=== PATIENT | female | born 1955 | race Caucasian/White ===

== ENCOUNTER → 2016-10-03 | Outpatient (CLI) | payer OTHER ==
[~2016-10-03] MED LIST: /ESOM40CA OR; ALLE25CA OR; ALLERGY SHOTS SUBQ; CETI10TA OR; FURO80TA2 OR; LIPI20TA OR; METF500T4 OR; RAMIP PO; SING10TA31 OR; SM I100T OR; VENTAER IN; VERA120T OR; XOPENEX NEB
[2016-10-03 13:34] LABS: ALBUMIN 4.5 GM/DL (3.2-5.2); ALBUMIN/GLOBULIN RATIO 1.36 (1.00-1.93); BILIRUBIN,DIRECT 0.1 MG/DL (0.0-0.2); BILIRUBIN,TOTAL 0.6 MG/DL (0.2-1.0); CALCIUM LEVEL 10.2 MG/DL (8.8-10.2); CREATININE FOR GFR 1.07 MG/DL (0.55-1.02); GLOMERULAR FILTRATION RATE 55.3 (>45); MEAN CORPUSCULAR HEMOGLOBIN 29.3 pg (27.0-33.0); MEAN CORPUSCULAR HGB CONC 33.1 g/dl (32.0-36.5); MEAN CORPUSCULAR VOLUME 88.6 fl (80.0-96.0); PHOSPHORUS LEVEL 3.3 MG/DL (2.5-4.9); POTASSIUM SERUM 4.2 MEQ/L (3.5-5.1); RED CELL DISTRIBUTION WIDTH 14.8 % (11.5-14.5); TOTAL PROTEIN 7.8 GM/DL (6.4-8.2); WHITE BLOOD COUNT 8.2 K/mm3 (4.0-10.0)
== END ==
LOC: M SMT 09:11
PROVIDERS: ATTEND Podiatrist Foot & Ankle Surgery
DX: B35.1 Tinea unguium (principal); Z79.899 Other long term (current) drug therapy

== ENCOUNTER → 2016-11-12 | Outpatient (CLI) | payer OTHER ==
[2016-11-12 14:01] LABS: MEAN CORPUSCULAR HEMOGLOBIN 29.9 pg (27.0-33.0); MEAN CORPUSCULAR HGB CONC 33.4 g/dl (32.0-36.5); MEAN CORPUSCULAR VOLUME 89.6 fl (80.0-96.0); WHITE BLOOD COUNT 6.7 K/mm3 (4.0-10.0)
[2016-11-12 14:03] LABS: ALBUMIN 4.4 GM/DL (3.2-5.2); ALBUMIN/GLOBULIN RATIO 1.57 (1.00-1.93); BILIRUBIN,DIRECT 0.2 MG/DL (0.0-0.2); BILIRUBIN,TOTAL 0.7 MG/DL (0.2-1.0); CALCIUM LEVEL 9.7 MG/DL (8.8-10.2); CREATININE FOR GFR 1.27 MG/DL (0.55-1.02); GLOMERULAR FILTRATION RATE 45.4 (>45); POTASSIUM SERUM 4.3 MEQ/L (3.5-5.1); TOTAL PROTEIN 7.2 GM/DL (6.4-8.2)
== END ==
LOC: M SMT 09:10
PROVIDERS: ATTEND Podiatrist Foot & Ankle Surgery
DX: Z79.899 Other long term (current) drug therapy (principal)

== ENCOUNTER → 2016-11-19 | Outpatient (CLI) | payer OTHER ==
[2016-11-19 20:19] LABS: ANION GAP 8 MEQ/L (8-16); BLOOD UREA NITROGEN 20 MG/DL (7-18); CARBON DIOXIDE LEVEL 26 MEQ/L (21-32); CHLORIDE LEVEL 105 MEQ/L (98-107); CREATININE FOR GFR 0.89 MG/DL (0.55-1.02); GLOMERULAR FILTRATION RATE > 60.0 (>45); GLUCOSE, FASTING 105 MG/DL (80-110); POTASSIUM SERUM 4.2 MEQ/L (3.5-5.1); SODIUM LEVEL 139 MEQ/L (136-145)
== END ==
LOC: M SMT 14:48
PROVIDERS: ATTEND Nurse Practitioner Family
DX: I10 Essential (primary) hypertension (principal)

== ENCOUNTER → 2016-12-27 | Outpatient (CLI) | payer OTHER ==
[2016-12-27 18:29] LABS: MEAN CORPUSCULAR HEMOGLOBIN 30.3 pg (27.0-33.0); MEAN CORPUSCULAR HGB CONC 32.7 g/dl (32.0-36.5); MEAN CORPUSCULAR VOLUME 92.6 fl (80.0-96.0); RED CELL DISTRIBUTION WIDTH 13.9 % (11.5-14.5); WHITE BLOOD COUNT 7.9 K/mm3 (4.0-10.0)
[2016-12-27 19:31] LABS: ALBUMIN 4.6 GM/DL (3.2-5.2); ALBUMIN/GLOBULIN RATIO 1.64 (1.00-1.93); BILIRUBIN,DIRECT 0.1 MG/DL (0.0-0.2); BILIRUBIN,TOTAL 0.7 MG/DL (0.2-1.0); CREATININE FOR GFR 1.16 MG/DL (0.55-1.02); GLOMERULAR FILTRATION RATE 50.4 (>45); PHOSPHORUS LEVEL 3.9 MG/DL (2.5-4.9); POTASSIUM SERUM 4.2 MEQ/L (3.5-5.1); TOTAL PROTEIN 7.4 GM/DL (6.4-8.2)
== END ==
LOC: M SMT 13:03
PROVIDERS: ATTEND Podiatrist Foot & Ankle Surgery
DX: B35.1 Tinea unguium (principal); Z79.899 Other long term (current) drug therapy

== ENCOUNTER → 2017-02-04 | Outpatient (CLI) | payer OTHER ==
[2017-02-04 18:00] LABS: ALBUMIN 4.4 GM/DL (3.2-5.2); ALBUMIN/GLOBULIN RATIO 1.47 (1.00-1.93); BILIRUBIN,TOTAL 0.7 MG/DL (0.2-1.0); CALCIUM LEVEL 9.4 MG/DL (8.8-10.2); CREATININE FOR GFR 1.01 MG/DL (0.55-1.02); GLOMERULAR FILTRATION RATE 59.1 (>45); POTASSIUM SERUM 3.5 MEQ/L (3.5-5.1); TOTAL PROTEIN 7.4 GM/DL (6.4-8.2)
[2017-02-04 18:35] LABS: BASO % 0.5 % (0.0-1.0); EOS # 0.2 K/mm3 (0.0-0.50); EOS % 3.4 % (0.0-3.0); LARGE UNSTAINED CELL # 0.1 K/mm3 (0.0-0.4); LARGE UNSTAINED CELL % 0.7 % (0.0-4.0); LYMPH # 1.3 K/mm3 (1.5-4.5); LYMPH % 16.9 % (24.0-44.0); MEAN CORPUSCULAR HEMOGLOBIN 29.6 pg (27.0-33.0); MEAN CORPUSCULAR HGB CONC 33.6 g/dl (32.0-36.5); MONO # 0.3 K/mm3 (0.0-0.8); MONO % 4.8 % (0.0-5.0); NEUTROPHILS # 5.3 K/mm3 (1.8-7.7); NEUTROPHILS % 73.7 % (36.0-66.0); PLATELET COUNT, AUTOMATED 372 k/mm3 (150-450); WHITE BLOOD COUNT 7.1 K/mm3 (4.0-10.0)
== END ==
LOC: M SMT 13:47
PROVIDERS: ATTEND Nurse Practitioner Family
DX: M16.0 Bilateral primary osteoarthritis of hip (principal); E78.4 Other hyperlipidemia; E11.9 Type 2 diabetes mellitus without complications; I10 Essential (primary) hypertension

== ENCOUNTER → 2017-02-06 | Outpatient (CLI) | payer OTHER ==
--- NOTE | 2017-02-06 09:55 | REP ---
REASON: Increasing back pain. COMPARISON: 11/07/2010. There is loss of disc space height and disc hydrational signal at L3-4 through L5-S1, particularly posteriorly at L3-4 and L4-5 but universally at L5-S1 essentially unchanged from the prior exam. No abnormal signal has developed in the imaged portion of the spinal cord. The marrow signal is within normal limits. 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 Vertebral body height and alignment is again seen to be within normal limits. At the L1-2 level, there is no change. There is no disc herniation, foraminal narrowing, or central canal stenosis. At the L2-3 level, there is a broad based annular bulge causing minimal thecal sac compression status quo. There is no disc herniation, foraminal narrowing or central canal stenosis. There is no significant change from the prior exam. At the L3-4 level, there is a broad based annular bulge which mildly compresses the anterior thecal sac but the degree of compression appears to be have increased slightly from the prior exam. Degenerative facet joint changes are present bilaterally with thickening of the ligamentum flava. There is no disc extrusion or foraminal stenosis. At the L4-5 level, there is a broad based annular bulge. The small central focal subligamentous disc protrusion seen previously has desiccated. The broad based bulge is again seen to flatten and straighten the anterior surface of the thecal sac causing slight central canal stenosis. There is no acute disc extrusion or foraminal narrowing. At the L5-S1 level, there is an asymmetric broad based annular bulge status quo. There is no disc extrusion, foraminal narrowing, or central canal stenosis. IMPRESSION: Multilevel discogenic changes as described above. Signed by Uriel Parsons DO 02/06/2017 11:04 A
--- NOTE | 2017-02-06 16:15 | REPMRS ---
Patient History The patient states she has not had a clinical breast exam in over a year. No known family history of cancer. Digital Mammo Screening Bilat: February 06, 2017 - Exam #: [id number] Bilateral CC and MLO view(s) were taken. Technologist: Syeda Herzog, Technologist Prior study comparison: January 30, 2013, digital mammo diagnostic bilateral performed at [facility]. July 21, 2012, right breast digital mammo diagnostic unilateral performed at [facility]. FINDINGS: There are scattered fibroglandular densities. There has been no change in the appearance of the mammogram from the prior studies. There is a mild amount of residual fibroglandular tissue which is fairly symmetric. There is no interval development of dominant mass, architectural distortion, or clustered microcalcification suggestive of malignancy. ASSESSMENT: BI-RADS/ACR category 1 mammogram. Negative. Recommendation Routine screening mammogram in 1 year (for women over age 40). This mammogram was interpreted with the aid of an FDA-approved computer-aided dectection system. Electronically Signed By: Eleazar Lynne MD 02/06/17 [id number]
== END ==
LOC: M RAD 07:14
PROVIDERS: ATTEND Nurse Practitioner Family
DX: Z12.31 Encounter for screening mammogram for malignant neoplasm of breast (principal); M51.26 Other intervertebral disc displacement, lumbar region; M51.27 Other intervertebral disc displacement, lumbosacral region

== ENCOUNTER 2018-03-12 08:57 | Inpatient (IN) | payer OTHER ==
[2018-03-12] MEDS: ACETAMINOPHEN TAB 650MG DOSE (2X325MG) PO ×2 (09:45→17:06)
[2018-03-12 09:52] LABS: VENOUS BASE EXCESS -3.9 (-2.0-2.0); VENOUS HCO3 19.4 MEQ/L (23.0-27.0); VENOUS O2 SATURATION 88.8 % (60.0-80.0); VENOUS PARTIAL PRESSURE CO2 29.9 mmHg (38.0-50.0); VENOUS PARTIAL PRESSURE O2 54.6 mmHg (30.0-50.0); VENOUS PH 7.431 UNITS (7.330-7.430); VENOUS STANDARD HCO3 21.1 MEQ/L; VENOUS TOTAL CO2 20.4 MEQ/L (24.0-28.0)
[2018-03-12 09:55] LABS: BASO % 0.3 % (0.0-1.0); EOS % 0.1 % (0.0-3.0); HEMATOCRIT 32.1 % (36.0-47.0); HEMOGLOBIN 10.7 g/dl (12.0-15.5); IMMATURE GRANULOCYTE % 0.6 % (0-3.0); LYMPH # 0.3 10^3/uL (1.5-4.5); LYMPH % 2.9 % (24.0-44.0); MEAN CORPUSCULAR HEMOGLOBIN 29.2 pg (27.0-33.0); MEAN CORPUSCULAR HGB CONC 33.3 g/dl (32.0-36.5); MEAN CORPUSCULAR VOLUME 87.7 fl (80.0-96.0); MONO # 0.8 10^3/uL (0.0-0.8); NEUTROPHILS # 9.9 10^3/uL (1.8-7.7); NEUTROPHILS % 89.1 % (36.0-66.0); PLATELET COUNT, AUTOMATED 301 10^3/uL (150-450); RED BLOOD COUNT 3.66 10^6/uL (4.00-5.40); RED CELL DISTRIBUTION WIDTH 14.8 % (11.5-14.5); WHITE BLOOD COUNT 11.1 10^3/uL (4.0-10.0)
[2018-03-12 09:58] LABS: POSITIVE MORPH POS FLAG
[2018-03-12 09:59] LABS: INR 1.09; PROTHROMBIN TIME 14.2 SECONDS (12.1-14.4)
[2018-03-12 10:00] LABS: PARTIAL THROMBOPLASTIN TIME 29.6 SECONDS (25.4-37.6)
[2018-03-12 10:05] LABS: LACTIC ACID SEPSIS PROTOCOL 1.7 MMOL/L (0.4-2.0)
[2018-03-12 10:05] LABS: ALKALINE PHOSPHATASE 80 U/L (45-117); ALT/SGPT 38 U/L (12-78); AMYLASE 34 U/L (25-115); AST/SGOT 27 U/L (7-37); BILIRUBIN,DIRECT 0.4 MG/DL (0.0-0.2); BILIRUBIN,TOTAL 0.8 MG/DL (0.2-1.0); BLOOD UREA NITROGEN 21 MG/DL (7-18); CALCIUM LEVEL 8.9 MG/DL (8.8-10.2); CPK CREATINE PHOSPHOKINASE 110 U/L (26-192); CREATININE FOR GFR 1.74 MG/DL (0.55-1.30); GLUCOSE, FASTING 131 MG/DL (70-100); POTASSIUM SERUM 3.4 MEQ/L (3.5-5.1); SODIUM LEVEL 136 MEQ/L (136-145); TROPONIN I < 0.02 NG/ML (< 0.10)
[2018-03-12 10:08] LABS: CK-MB VALUE MASS < 1.0 NG/ML (<3.6)
[2018-03-12 10:15] LABS: APPEARANCE, URINE CLEAR (CLEAR); BACTERIA, URINE AUTO NEGATIVE (NEGATIVE); BILIRUBIN, URINE AUTO NEGATIVE (NEGATIVE); BLOOD, URINE BLOOD 1+ (NEGATIVE); COLOR, URINE YELLOW (YELLOW); GLUCOSE, URINE (UA) AUTO NEGATIVE (NEGATIVE); KETONE, URINE AUTO NEGATIVE (NEGATIVE); LEUKOCYTE ESTERASE, URINE AUTO NEGATIVE (NEGATIVE); MUCUS, URINE SMALL (NEGATIVE); NITRITE, URINE AUTO NEGATIVE (NEGATIVE); PROTEIN, URINE AUTO 2+ mg/dL (NEGATIVE); RBC, URINE AUTO 0 /HPF (0-3); SPECIFIC GRAVITY URINE AUTO 1.018 (1.002-1.035); SQUAMOUS EPITHELIAL CELL UR AU 0 /HPF (0-6); WBC, URINE AUTO 1 /HPF (0-3)
[2018-03-12 11:03] LABS: ALBUMIN 3.1 GM/DL (3.2-5.2); ALBUMIN/GLOBULIN RATIO 0.84 (1.00-1.93); ANION GAP 11 MEQ/L (8-16); CARBON DIOXIDE LEVEL 19 MEQ/L (21-32); CHLORIDE LEVEL 106 MEQ/L (98-107); TOTAL PROTEIN 6.8 GM/DL (6.4-8.2)
[2018-03-12] MEDS: DILUENT IV (11:09)
[2018-03-12] MEDS: NS IV (11:09)
[2018-03-12] MEDS: LevoFLOXacin IV 750 MG in APPROPRIATE DILUENT 1 EA IV (11:09)
[2018-03-12] MEDS: ALBUTEROL SULFATE 2.5 MG/0.5 ML INH NEB SOLN NEB (11:47)
[2018-03-12 12:06] LABS: INFLUENZA A AMPLIFICATION NEGATIVE (NEGATIVE); INFLUENZA B AMPLIFICATION NEGATIVE (NEGATIVE)
[2018-03-12] MEDS ORDERED: LEVALBUTEROL HFA 45MCG/ACT 15 GM INHALER INH (14:45)
[2018-03-12 16:21] LABS: CARBOXYHEMOGLOBIN 2.3 % (0.0-1.5)
[2018-03-12 16:50] LABS: CPK CREATINE PHOSPHOKINASE 145 U/L (26-192); FREE THYROXINE INDEX 3.8 % (1.3-4.8); MAGNESIUM LEVEL 1.9 MG/DL (1.8-2.4); T UPTAKE 38 % (30-39); THYROXINE (T4) 10.1 UG/DL (4.5-12.0); TROPONIN I < 0.02 NG/ML (< 0.10)
[2018-03-12 16:56] LABS: MB/CK RELATIVE INDEX 0.68 (< OR =4); THYROID STIMULATING HORMONE 0.655 uIU/ML (0.358-3.740)
[2018-03-12] MEDS: KCL 20MEQ IN 0.45NS 1000ML 1,000 ML IV ×2 (17:05→18:30)
[2018-03-12] MEDS: POTASSIUM CHLORIDE 10 MEQ SR TABLET PO (17:06)
[2018-03-12] MEDS: MONTELUKAST 10 MG TAB PO (22:19)
[2018-03-12] MEDS: HEPARIN SOD (PORCINE) 5000 UNITS/ML VIAL SC (22:19)
[2018-03-12] MEDS: ATORVASTATIN 20 MG TAB PO (22:19)
[2018-03-12] MEDS: PANTOPRAZOLE 40MG TAB (PROTONIX) PO (22:19)
[2018-03-12] MEDS: VERAPAMIL 40 MG TAB PO (22:21)
[2018-03-12] MEDS: MEROPENEM INJ 1 GM in APPROPRIATE DILUENT 1 EA IV (22:21)
[2018-03-12] MEDS ORDERED: PILL CRUSHER/CUTTER 1 EACH XX (22:30)
[2018-03-12] MEDS: VANCOMYCIN HCL 1,000 MG, VIAL MATE ADAPTER 1 EACH in D5W 250 ML IV (23:27)
[2018-03-12 23:46] LABS: OSMOLALITY URINE 364 MOSM/KG (500-800)
[2018-03-13 00:06] LABS: CHLORIDE,RANDOM URINE 99 MEQ/L; CREATININE,RANDOM URINE 60.8 MG/DL; SODIUM,RANDOM URINE 99 MEQ/L; TOTAL PROTEIN,RANDOM URINE 62.4 MG/DL (0.0-12.0)
[2018-03-13] MEDS: ACETAMINOPHEN TAB 650MG DOSE (2X325MG) PO ×2 (00:06→09:34)
[2018-03-13] MEDS: VERAPAMIL 40 MG TAB PO ×3 (05:43→21:51)
[2018-03-13] MEDS: KCL 20MEQ IN 0.45NS 1000ML 1,000 ML IV (05:43)
[2018-03-13 06:00] LABS: HEMATOCRIT 28.3 % (36.0-47.0); HEMOGLOBIN 8.9 g/dl (12.0-15.5); MEAN CORPUSCULAR HEMOGLOBIN 28.5 pg (27.0-33.0); MEAN CORPUSCULAR HGB CONC 31.4 g/dl (32.0-36.5); MEAN CORPUSCULAR VOLUME 90.7 fl (80.0-96.0); PLATELET COUNT, AUTOMATED 254 10^3/uL (150-450); RED BLOOD COUNT 3.12 10^6/uL (4.00-5.40); RED CELL DISTRIBUTION WIDTH 15.3 % (11.5-14.5)
[2018-03-13 06:27] LABS: ALBUMIN 2.3 GM/DL (3.2-5.2); ANION GAP 9 MEQ/L (8-16); BLOOD UREA NITROGEN 9 MG/DL (7-18); CALCIUM LEVEL 8.5 MG/DL (8.8-10.2); CARBON DIOXIDE LEVEL 20 MEQ/L (21-32); CHLORIDE LEVEL 113 MEQ/L (98-107); CREATININE FOR GFR 1.16 MG/DL (0.55-1.30); GLOMERULAR FILTRATION RATE 50.2 (>45); GLUCOSE, FASTING 92 MG/DL (70-100); MAGNESIUM LEVEL 1.9 MG/DL (1.8-2.4); PHOSPHORUS LEVEL 2.2 MG/DL (2.5-4.9); POTASSIUM SERUM 3.7 MEQ/L (3.5-5.1); SODIUM LEVEL 142 MEQ/L (136-145)
[2018-03-13] MEDS: HEPARIN SOD (PORCINE) 5000 UNITS/ML VIAL SC ×2 (08:18→20:34)
[2018-03-13] MEDS: MEROPENEM INJ 1 GM in APPROPRIATE DILUENT 1 EA IV ×2 (10:24→21:16)
[2018-03-13] MEDS: METOCLOPRAMIDE INJ 10MG/2ML VIAL (J2765) IV (10:25)
[2018-03-13] MEDS: KETOROLAC 30 MG/ML VIAL (J1885) IV (10:25)
[2018-03-13] MEDS ORDERED: MOXIFLOXACIN HCL 400 MG in APPROPRIATE DILUENT 1 EA IV (11:00)
[2018-03-13] MEDS ORDERED: VANCOMYCIN HCL 1,000 MG, VIAL MATE ADAPTER 1 EACH in D5W 250 ML IV (12:00)
[2018-03-13] MEDS: AZITHROMYCIN INJ 500 MG, VIAL MATE ADAPTER 1 EACH in D5W 250 ML IV (12:09)
[2018-03-13] MEDS: FIORICET TAB PO ×2 (12:31→18:00)
[2018-03-13] MEDS: VANCOMYCIN HCL 1,000 MG, VIAL MATE ADAPTER 1 EACH in D5W 250 ML IV (13:28)
[2018-03-13] MEDS: VANCOMYCIN HCL 500 MG in D5W MINI-BAG PLUS 100 ML IV (14:36)
[2018-03-13] MEDS: guaiFENesin DM LIQ 10ML UD PO ×2 (15:20→22:36)
[2018-03-13] MEDS: KCL 40MEQ in NS 1000ML 1,000 ML IV (15:58)
[2018-03-13] MEDS: NS 1,000 ML IV (18:24)
[2018-03-13 19:02] LABS: ANION GAP 10 MEQ/L (8-16); BLOOD UREA NITROGEN 8 MG/DL (7-18); CALCIUM LEVEL 9.2 MG/DL (8.8-10.2); CARBON DIOXIDE LEVEL 19 MEQ/L (21-32); CHLORIDE LEVEL 112 MEQ/L (98-107); CREATININE FOR GFR 1.09 MG/DL (0.55-1.30); GLUCOSE, FASTING 80 MG/DL (70-100); SODIUM LEVEL 141 MEQ/L (136-145)
[2018-03-13] MEDS: ATORVASTATIN 20 MG TAB PO (20:32)
[2018-03-13] MEDS: PANTOPRAZOLE 40MG TAB (PROTONIX) PO (20:33)
[2018-03-13] MEDS: MONTELUKAST 10 MG TAB PO (20:34)
[2018-03-14 00:07] LABS: ANION GAP 9 MEQ/L (8-16); BLOOD UREA NITROGEN 8 MG/DL (7-18); CALCIUM LEVEL 8.9 MG/DL (8.8-10.2); CARBON DIOXIDE LEVEL 19 MEQ/L (21-32); CHLORIDE LEVEL 114 MEQ/L (98-107); GLOMERULAR FILTRATION RATE 53.4 (>45); GLUCOSE, FASTING 91 MG/DL (70-100); POTASSIUM SERUM 3.9 MEQ/L (3.5-5.1); SODIUM LEVEL 142 MEQ/L (136-145)
[2018-03-14] MEDS: VANCOMYCIN HCL 1,000 MG, VIAL MATE ADAPTER 1 EACH in D5W 250 ML IV (00:16)
[2018-03-14] MEDS: FIORICET TAB PO ×4 (00:19→20:35)
[2018-03-14] MEDS: LEVALBUTEROL 1.25 MG/0.5 ML CONCENTRATE NEB INH ×4 (01:28→20:57)
[2018-03-14] MEDS: guaiFENesin DM LIQ 10ML UD PO ×2 (05:44→18:57)
[2018-03-14] MEDS: NS 1,000 ML IV ×2 (05:52→13:16)
[2018-03-14 06:03] LABS: HEMATOCRIT 28.7 % (36.0-47.0); HEMOGLOBIN 9.3 g/dl (12.0-15.5); MEAN CORPUSCULAR HEMOGLOBIN 29.2 pg (27.0-33.0); MEAN CORPUSCULAR HGB CONC 32.4 g/dl (32.0-36.5); MEAN CORPUSCULAR VOLUME 90.3 fl (80.0-96.0); PLATELET COUNT, AUTOMATED 275 10^3/uL (150-450); RED BLOOD COUNT 3.18 10^6/uL (4.00-5.40); RED CELL DISTRIBUTION WIDTH 15.6 % (11.5-14.5); WHITE BLOOD COUNT 6.7 10^3/uL (4.0-10.0)
[2018-03-14 06:25] LABS: ALBUMIN 2.1 GM/DL (3.2-5.2); ANION GAP 8 MEQ/L (8-16); BLOOD UREA NITROGEN 6 MG/DL (7-18); CALCIUM LEVEL 8.6 MG/DL (8.8-10.2); CARBON DIOXIDE LEVEL 20 MEQ/L (21-32); CHLORIDE LEVEL 114 MEQ/L (98-107); CREATININE FOR GFR 0.94 MG/DL (0.55-1.30); GLOMERULAR FILTRATION RATE > 60.0 (>45); GLUCOSE, FASTING 103 MG/DL (70-100); POTASSIUM SERUM 3.7 MEQ/L (3.5-5.1); SODIUM LEVEL 142 MEQ/L (136-145)
[2018-03-14] MEDS: VERAPAMIL 40 MG TAB PO ×4 (06:54→22:00)
[2018-03-14] MEDS: FLUTICASONE INH (07:38)
[2018-03-14] MEDS: VILANTEROL INH (07:38)
[2018-03-14] MEDS: HEPARIN SOD (PORCINE) 5000 UNITS/ML VIAL SC ×2 (09:00→20:45)
[2018-03-14] MEDS: MEROPENEM INJ 1 GM in APPROPRIATE DILUENT 1 EA IV ×2 (09:51→22:42)
[2018-03-14] MEDS: AZITHROMYCIN 250 MG TAB PO (11:01)
[2018-03-14] MEDS: METOCLOPRAMIDE INJ 10MG/2ML VIAL (J2765) IV (12:19)
[2018-03-14] MEDS: KETOROLAC 30 MG/ML VIAL (J1885) IV (12:19)
[2018-03-14 12:56] LABS: ERYTHROCYTE SEDIMENTATION RATE 127 mm/hr (0-30)
[2018-03-14] MEDS: SODIUM BICARBONATE 325 MG TAB PO ×3 (13:15→20:44)
[2018-03-14 19:07] LABS: ANION GAP 7 MEQ/L (8-16); BLOOD UREA NITROGEN 8 MG/DL (7-18); CALCIUM LEVEL 8.5 MG/DL (8.8-10.2); CARBON DIOXIDE LEVEL 21 MEQ/L (21-32); CHLORIDE LEVEL 117 MEQ/L (98-107); GLOMERULAR FILTRATION RATE 48.3 (>45); GLUCOSE, FASTING 107 MG/DL (70-100); POTASSIUM SERUM 3.3 MEQ/L (3.5-5.1); SODIUM LEVEL 145 MEQ/L (136-145)
[2018-03-14 19:10] LABS: LACTIC ACID SEPSIS PROTOCOL 1.9 MMOL/L (0.4-2.0)
[2018-03-14] MEDS: ATORVASTATIN 20 MG TAB PO (20:43)
[2018-03-14] MEDS: PANTOPRAZOLE 40MG TAB (PROTONIX) PO (20:43)
[2018-03-14] MEDS: MONTELUKAST 10 MG TAB PO (20:43)
[2018-03-14] MEDS: ZONISAMIDE 50 MG CAP (ZONEGRAN) PO (20:45)
[2018-03-14] MEDS ORDERED: XYZAL 5 MG PO (21:00)
[2018-03-15] MEDS: guaiFENesin DM LIQ 10ML UD PO ×2 (00:09→05:04)
[2018-03-15] MEDS: LEVALBUTEROL 1.25 MG/0.5 ML CONCENTRATE NEB INH ×4 (01:00→19:37)
[2018-03-15] MEDS: NS 1,000 ML IV ×2 (01:10→10:30)
[2018-03-15] MEDS: FIORICET TAB PO (04:04)
[2018-03-15 05:47] LABS: HEMATOCRIT 23.6 % (36.0-47.0); HEMOGLOBIN 7.7 g/dl (12.0-15.5); MEAN CORPUSCULAR HEMOGLOBIN 28.6 pg (27.0-33.0); MEAN CORPUSCULAR HGB CONC 32.6 g/dl (32.0-36.5); MEAN CORPUSCULAR VOLUME 87.7 fl (80.0-96.0); PLATELET COUNT, AUTOMATED 304 10^3/uL (150-450); RED BLOOD COUNT 2.69 10^6/uL (4.00-5.40); RED CELL DISTRIBUTION WIDTH 15.9 % (11.5-14.5); WHITE BLOOD COUNT 6.5 10^3/uL (4.0-10.0)
[2018-03-15] MEDS: VERAPAMIL 40 MG TAB PO ×3 (06:00→21:58)
[2018-03-15 06:03] LABS: ANION GAP 9 MEQ/L (8-16); BLOOD UREA NITROGEN 6 MG/DL (7-18); CALCIUM LEVEL 8.4 MG/DL (8.8-10.2); CARBON DIOXIDE LEVEL 19 MEQ/L (21-32); CHLORIDE LEVEL 116 MEQ/L (98-107); CREATININE FOR GFR 0.95 MG/DL (0.55-1.30); GLOMERULAR FILTRATION RATE > 60.0 (>45); GLUCOSE, FASTING 115 MG/DL (70-100); MAGNESIUM LEVEL 1.9 MG/DL (1.8-2.4); PHOSPHORUS LEVEL 1.9 MG/DL (2.5-4.9); POTASSIUM SERUM 3.3 MEQ/L (3.5-5.1); SODIUM LEVEL 144 MEQ/L (136-145)
[2018-03-15 07:27] LABS: FERRITIN 902 NG/ML (8-252); IRON (FE) 18 UG/DL (50-170); PERCENT SATURATION 11.2 % (13.2-45.0); TOTAL IRON BINDING CAPACITY 161 UG/DL (250-450)
[2018-03-15 07:39] LABS: HEMATOCRIT 24.8 % (36.0-47.0); HEMOGLOBIN 8.1 g/dl (12.0-15.5); RETIC HEMOGLOBIN EQUIVALENT 28.5 pg (24-36); RETICULOCYTE # 13.9 10^9/L (17-77); RETICULOCYTE % 0.5 % (0.5-1.5)
[2018-03-15 07:45] LABS: REASON FOR REVIEW RBC MORPHOLOGY; SLIDE REVIEW Report; SOURCE PERIPHERAL SMEAR
[2018-03-15] MEDS: VILANTEROL INH (07:47)
[2018-03-15] MEDS: FLUTICASONE INH (07:47)
[2018-03-15] MEDS: POTASSIUM CHLORIDE 10 MEQ SR TABLET PO (09:07)
[2018-03-15] MEDS: AZITHROMYCIN 250 MG TAB PO (09:07)
[2018-03-15] MEDS: KETOROLAC 30 MG/ML VIAL (J1885) IV (09:07)
[2018-03-15] MEDS: SODIUM BICARBONATE 325 MG TAB PO ×4 (09:07→19:58)
[2018-03-15] MEDS: METOCLOPRAMIDE INJ 10MG/2ML VIAL (J2765) IV (09:08)
[2018-03-15] MEDS: HEPARIN SOD (PORCINE) 5000 UNITS/ML VIAL SC ×2 (09:08→19:52)
[2018-03-15] MEDS: MAG SULF 1GM/100ML (MAG RUN) 1 GM in APPROPRIATE DILUENT 1 EA IV ×2 (09:08→17:21)
[2018-03-15] MEDS: DEXTROMETHORPHAN 60MG/10ML SUSP 90ML BTL(DELSYM) PO (10:24)
[2018-03-15] MEDS: MEROPENEM INJ 1 GM in APPROPRIATE DILUENT 1 EA IV (10:24)
[2018-03-15] MEDS: TOPIRAMATE (TopAMAX) 25 MG TAB PO (11:04)
[2018-03-15 14:10] LABS: BODY FLUID CULTURE Not Indicated (.); LEGIONELLA ANTIGEN URINE Negative (Negative); ORGANISM ID Not indicated. (.); SPECIMEN SOURCE Urine (.); URINE STREP PNEUMONIAE ANTIGEN Negative (Negative)
[2018-03-15] MEDS ORDERED: NORCO, ANEXSIA 5/325MG TABLET (HYDROcodone/ACETAMINOPHEN) PO (15:45)
[2018-03-15] MEDS: TUSSICAPS ER 10/8MG CAPSULE PO ×2 (16:46→19:58)
[2018-03-15] MEDS: FUROSEMIDE 20 MG/2 ML VIAL (J1940) IV (16:46)
[2018-03-15 16:59] LABS: NT-PRO BNP 956 PG/ML (<125)
[2018-03-15] MEDS ORDERED: MAG SULF 1GM/100ML (MAG RUN) 1 GM in APPROPRIATE DILUENT 1 EA IV (17:00)
[2018-03-15] MEDS ORDERED: RACEPINEPHrine 2.25 % UD INHA INH (17:15)
[2018-03-15] MEDS: BUDESONIDE 0.5 MG/2 ML INHALATION SUSPENSION INH (17:21)
[2018-03-15] MEDS: RACEPINEPHrine 2.25 % UD INHA INH (17:30)
[2018-03-15] MEDS ORDERED: methylPREDNISolone INJ 125 MG/2 ML VIAL (J2930) IV (18:00)
[2018-03-15] MEDS: methylPREDNISolone INJ 125 MG/2 ML VIAL (J2930) IV (18:55)
[2018-03-15 19:08] LABS: ABG BASE EXCESS -5.1 (-2.0-2.0); ABG HCO3 17.3 MEQ/L (22.0-26.0); ABG O2 SATURATION 93.7 % (95.0-99.0); ABG PARTIAL PRESSURE O2 65.5 mmHg (75.0-100.0); ABG STANDARD HCO3 20.2 MEQ/L (22.0-26.0); ABG pH (ARTERIAL) 7.475 UNITS (7.350-7.450)
[2018-03-15] MEDS: ATORVASTATIN 20 MG TAB PO (19:52)
[2018-03-15] MEDS: PANTOPRAZOLE 40MG TAB (PROTONIX) PO (19:52)
[2018-03-15] MEDS: MONTELUKAST 10 MG TAB PO (19:52)
[2018-03-15] MEDS: ACETAMINOPHEN TAB 650MG DOSE (2X325MG) PO (19:53)
[2018-03-15] MEDS: FUROSEMIDE 100 MG/10 ML VIAL (J1940) IV (19:55)
[2018-03-15 20:14] LABS: ANION GAP 10 MEQ/L (8-16); BLOOD UREA NITROGEN 6 MG/DL (7-18); CALCIUM LEVEL 8.6 MG/DL (8.8-10.2); CARBON DIOXIDE LEVEL 20 MEQ/L (21-32); CHLORIDE LEVEL 114 MEQ/L (98-107); CPK CREATINE PHOSPHOKINASE 896 U/L (26-192); CREATININE FOR GFR 1.03 MG/DL (0.55-1.30); GLOMERULAR FILTRATION RATE 57.6 (>45); GLUCOSE, FASTING 118 MG/DL (70-100); POTASSIUM SERUM 4.1 MEQ/L (3.5-5.1); SODIUM LEVEL 144 MEQ/L (136-145); TROPONIN I 0.14 NG/ML (< 0.10)
[2018-03-15 20:15] LABS: CK-MB VALUE MASS 2.1 NG/ML (<3.6); MB/CK RELATIVE INDEX 0.23 (< OR =4)
[2018-03-15] MEDS ORDERED: IBUPROFEN 400 MG TAB PO (20:30)
[2018-03-15] MEDS: traZODone 100 MG TAB PO (21:00)
[2018-03-15] MEDS: LevoFLOXacin IV 500 MG in APPROPRIATE DILUENT 1 EA IV (22:00)
[2018-03-15] MEDS: ACETAMINOPH W/CODEINE #3 TAB UD PO (22:00)
[2018-03-15] MEDS: CEFTAROLINE FOSAMIL 600 MG in D5W MINI-BAG PLUS 50 ML IV (23:38)
[2018-03-16] MEDS ORDERED: methylPREDNISolone INJ 125 MG/2 ML VIAL (J2930) IV (01:00)
[2018-03-16 04:06] LABS: HEMATOCRIT 27.2 % (36.0-47.0); MEAN CORPUSCULAR HEMOGLOBIN 28.9 pg (27.0-33.0); MEAN CORPUSCULAR HGB CONC 33.1 g/dl (32.0-36.5); MEAN CORPUSCULAR VOLUME 87.5 fl (80.0-96.0); PLATELET COUNT, AUTOMATED 395 10^3/uL (150-450); RED BLOOD COUNT 3.11 10^6/uL (4.00-5.40); RED CELL DISTRIBUTION WIDTH 15.9 % (11.5-14.5); WHITE BLOOD COUNT 6.4 10^3/uL (4.0-10.0)
[2018-03-16 04:24] LABS: ALBUMIN 2.3 GM/DL (3.2-5.2); ANION GAP 12 MEQ/L (8-16); BLOOD UREA NITROGEN 9 MG/DL (7-18); CALCIUM LEVEL 8.7 MG/DL (8.8-10.2); CARBON DIOXIDE LEVEL 21 MEQ/L (21-32); CHLORIDE LEVEL 110 MEQ/L (98-107); CREATININE FOR GFR 1.06 MG/DL (0.55-1.30); GLOMERULAR FILTRATION RATE 55.7 (>45); GLUCOSE, FASTING 168 MG/DL (70-100); MAGNESIUM LEVEL 2.6 MG/DL (1.8-2.4); PHOSPHORUS LEVEL 3.2 MG/DL (2.5-4.9); POTASSIUM SERUM 3.4 MEQ/L (3.5-5.1); SODIUM LEVEL 143 MEQ/L (136-145)
[2018-03-16] MEDS: POTASSIUM CHLORIDE 10 MEQ SR TABLET PO (06:34)
[2018-03-16 07:15] LABS: CPK CREATINE PHOSPHOKINASE 747 U/L (26-192); TROPONIN I 0.09 NG/ML (< 0.10)
[2018-03-16 07:26] LABS: CK-MB VALUE MASS 2.4 NG/ML (<3.6); MB/CK RELATIVE INDEX 0.32 (< OR =4)
[2018-03-16] MEDS: BUDESONIDE 0.5 MG/2 ML INHALATION SUSPENSION INH ×2 (07:26→21:06)
[2018-03-16] MEDS: LEVALBUTEROL 1.25 MG/0.5 ML CONCENTRATE NEB INH ×2 (07:28→11:12)
[2018-03-16] MEDS: TUSSICAPS ER 10/8MG CAPSULE PO ×2 (08:53→21:52)
[2018-03-16] MEDS: VERAPAMIL 120 MG SR TAB PO (08:53)
[2018-03-16] MEDS: HEPARIN SOD (PORCINE) 5000 UNITS/ML VIAL SC ×2 (08:54→21:51)
[2018-03-16] MEDS: methylPREDNISolone INJ 40 MG/1 ML VIAL (J2920) IV ×2 (08:54→21:51)
[2018-03-16] MEDS: FLUTICASONE INH (09:00)
[2018-03-16] MEDS: VILANTEROL INH (09:00)
[2018-03-16] MEDS: CEFTAROLINE FOSAMIL 600 MG in D5W MINI-BAG PLUS 50 ML IV ×2 (10:56→23:29)
[2018-03-16] MEDS ORDERED: LEVALBUTEROL 1.25 MG/0.5 ML CONCENTRATE NEB INH ×2 (13:45→20:00)
[2018-03-16] MEDS: FUROSEMIDE 20 MG TAB PO (14:36)
[2018-03-16] MEDS: ATORVASTATIN 20 MG TAB PO (21:50)
[2018-03-16] MEDS: FUROSEMIDE 40 MG TAB PO (21:50)
[2018-03-16] MEDS: SPIRONOLACTONE 25 MG TAB PO (21:50)
[2018-03-16] MEDS: MONTELUKAST 10 MG TAB PO (21:50)
[2018-03-16] MEDS: PANTOPRAZOLE 40MG TAB (PROTONIX) PO (21:50)
[2018-03-16] MEDS: LevoFLOXacin IV 500 MG in APPROPRIATE DILUENT 1 EA IV (21:51)
[2018-03-16] MEDS: traZODone 100 MG TAB PO (22:59)
[2018-03-17 06:15] LABS: HEMATOCRIT 26.9 % (36.0-47.0); MEAN CORPUSCULAR HEMOGLOBIN 29.1 pg (27.0-33.0); MEAN CORPUSCULAR HGB CONC 33.5 g/dl (32.0-36.5); MEAN CORPUSCULAR VOLUME 87.1 fl (80.0-96.0); PLATELET COUNT, AUTOMATED 523 10^3/uL (150-450); RED BLOOD COUNT 3.09 10^6/uL (4.00-5.40); RED CELL DISTRIBUTION WIDTH 16.1 % (11.5-14.5); WHITE BLOOD COUNT 12.4 10^3/uL (4.0-10.0)
[2018-03-17 06:29] LABS: ALBUMIN 2.4 GM/DL (3.2-5.2); ANION GAP 11 MEQ/L (8-16); BLOOD UREA NITROGEN 19 MG/DL (7-18); CALCIUM LEVEL 9.5 MG/DL (8.8-10.2); CARBON DIOXIDE LEVEL 24 MEQ/L (21-32); CHLORIDE LEVEL 108 MEQ/L (98-107); CREATININE FOR GFR 1.12 MG/DL (0.55-1.30); GLOMERULAR FILTRATION RATE 52.3 (>45); GLUCOSE, FASTING 148 MG/DL (70-100); MAGNESIUM LEVEL 2.2 MG/DL (1.8-2.4); PHOSPHORUS LEVEL 3.6 MG/DL (2.5-4.9); POTASSIUM SERUM 3.9 MEQ/L (3.5-5.1); SODIUM LEVEL 143 MEQ/L (136-145)
[2018-03-17] MEDS: BUDESONIDE 0.5 MG/2 ML INHALATION SUSPENSION INH (07:56)
[2018-03-17] MEDS: VILANTEROL INH (07:57)
[2018-03-17] MEDS: FLUTICASONE INH (07:57)
[2018-03-17] MEDS: TUSSICAPS ER 10/8MG CAPSULE PO ×2 (10:17→22:40)
[2018-03-17] MEDS: ACETAMINOPH W/CODEINE #3 TAB UD PO (10:18)
[2018-03-17] MEDS: VERAPAMIL 120 MG SR TAB PO (10:30)
[2018-03-17] MEDS: methylPREDNISolone INJ 40 MG/1 ML VIAL (J2920) IV ×2 (10:31→21:04)
[2018-03-17] MEDS: FUROSEMIDE 40 MG TAB PO ×2 (10:31→20:56)
[2018-03-17] MEDS: HEPARIN SOD (PORCINE) 5000 UNITS/ML VIAL SC ×2 (10:33→21:04)
[2018-03-17] MEDS: CEFTAROLINE FOSAMIL 600 MG in D5W MINI-BAG PLUS 50 ML IV ×2 (10:52→22:40)
[2018-03-17] MEDS ORDERED: MIDAZOLAM INJ 2 MG/2 ML VIAL (J2250) As Ordered (18:55)
[2018-03-17] MEDS ORDERED: fentaNYL 100 MCG/2 ML INJECTION (J3010) As Ordered (18:55)
[2018-03-17] MEDS ORDERED: PROPOFOL 200 MG/20 ML VIAL As Ordered (18:56)
[2018-03-17] MEDS ORDERED: LIDOCAINE 2% INJ 100 MG/5 ML SDV (FOR ANES.) As Ordered (18:56)
[2018-03-17] MEDS: LIDOCAINE 1% SDV INJ 30 ML VIAL As Ordered (19:13)
[2018-03-17] MEDS: BUPIVACAINE HCL 0.5% 30 ML VIAL As Ordered (19:13)
[2018-03-17] MEDS: traZODone 100 MG TAB PO (20:55)
[2018-03-17] MEDS: SPIRONOLACTONE 25 MG TAB PO (21:03)
[2018-03-17] MEDS: MONTELUKAST 10 MG TAB PO (21:03)
[2018-03-17] MEDS: ATORVASTATIN 20 MG TAB PO (21:03)
[2018-03-17] MEDS: PANTOPRAZOLE 40MG TAB (PROTONIX) PO (21:03)
[2018-03-17] MEDS: LevoFLOXacin IV 500 MG in APPROPRIATE DILUENT 1 EA IV (21:04)
[2018-03-18 05:51] LABS: HEMATOCRIT 27.6 % (36.0-47.0); HEMOGLOBIN 9.3 g/dl (12.0-15.5); MEAN CORPUSCULAR HGB CONC 33.7 g/dl (32.0-36.5); PLATELET COUNT, AUTOMATED 561 10^3/uL (150-450); RED BLOOD COUNT 3.21 10^6/uL (4.00-5.40); RED CELL DISTRIBUTION WIDTH 16.1 % (11.5-14.5); WHITE BLOOD COUNT 9.8 10^3/uL (4.0-10.0)
[2018-03-18 06:18] LABS: ALBUMIN 2.5 GM/DL (3.2-5.2); ANION GAP 10 MEQ/L (8-16); BLOOD UREA NITROGEN 27 MG/DL (7-18); C REACTIVE PROTEIN QUANTITATIV 5.74 MG/DL (0.00-0.30); CALCIUM LEVEL 9.5 MG/DL (8.8-10.2); CARBON DIOXIDE LEVEL 26 MEQ/L (21-32); CHLORIDE LEVEL 107 MEQ/L (98-107); GLOMERULAR FILTRATION RATE 48.3 (>45); GLUCOSE, FASTING 132 MG/DL (70-100); MAGNESIUM LEVEL 2.3 MG/DL (1.8-2.4); PHOSPHORUS LEVEL 4.6 MG/DL (2.5-4.9); POTASSIUM SERUM 3.9 MEQ/L (3.5-5.1); SODIUM LEVEL 143 MEQ/L (136-145)
[2018-03-18] MEDS: LEVALBUTEROL 1.25 MG/0.5 ML CONCENTRATE NEB INH (07:53)
[2018-03-18] MEDS: VILANTEROL INH (07:54)
[2018-03-18] MEDS: FLUTICASONE INH (07:54)
[2018-03-18] MEDS: FUROSEMIDE 40 MG TAB PO ×3 (09:00→20:49)
[2018-03-18] MEDS: methylPREDNISolone INJ 40 MG/1 ML VIAL (J2920) IV (09:15)
[2018-03-18] MEDS: HEPARIN SOD (PORCINE) 5000 UNITS/ML VIAL SC ×2 (09:15→20:49)
[2018-03-18] MEDS: VERAPAMIL 120 MG SR TAB PO (09:17)
[2018-03-18] MEDS: TUSSICAPS ER 10/8MG CAPSULE PO ×2 (09:17→20:48)
[2018-03-18] MEDS: CEFTAROLINE FOSAMIL 600 MG in D5W MINI-BAG PLUS 50 ML IV (10:08)
[2018-03-18] MEDS: LevoFLOXacin 500 MG TABLET PO (17:24)
[2018-03-18] MEDS: ACETAMINOPHEN TAB 650MG DOSE (2X325MG) PO (17:24)
[2018-03-18] MEDS: SPIRONOLACTONE 25 MG TAB PO (20:48)
[2018-03-18] MEDS: predniSONE 10 MG TAB PO (20:48)
[2018-03-18] MEDS: ATORVASTATIN 20 MG TAB PO (20:48)
[2018-03-18] MEDS: PANTOPRAZOLE 40MG TAB (PROTONIX) PO (20:48)
[2018-03-18] MEDS: MONTELUKAST 10 MG TAB PO (20:48)
[2018-03-18] MEDS: traZODone 100 MG TAB PO (20:49)
[2018-03-18] MEDS: ACETAMINOPH W/CODEINE #3 TAB UD PO (23:17)
[2018-03-19 05:56] LABS: HEMATOCRIT 29.3 % (36.0-47.0); HEMOGLOBIN 9.5 g/dl (12.0-15.5); MEAN CORPUSCULAR HEMOGLOBIN 28.2 pg (27.0-33.0); MEAN CORPUSCULAR HGB CONC 32.4 g/dl (32.0-36.5); MEAN CORPUSCULAR VOLUME 86.9 fl (80.0-96.0); PLATELET COUNT, AUTOMATED 595 10^3/uL (150-450); RED BLOOD COUNT 3.37 10^6/uL (4.00-5.40); RED CELL DISTRIBUTION WIDTH 15.8 % (11.5-14.5)
[2018-03-19 06:07] LABS: ALBUMIN 2.6 GM/DL (3.2-5.2); ANION GAP 8 MEQ/L (8-16); BLOOD UREA NITROGEN 29 MG/DL (7-18); CALCIUM LEVEL 9.5 MG/DL (8.8-10.2); CARBON DIOXIDE LEVEL 27 MEQ/L (21-32); CHLORIDE LEVEL 109 MEQ/L (98-107); CREATININE FOR GFR 1.26 MG/DL (0.55-1.30); GLOMERULAR FILTRATION RATE 45.7 (>45); GLUCOSE, FASTING 121 MG/DL (70-100); MAGNESIUM LEVEL 2.7 MG/DL (1.8-2.4); PHOSPHORUS LEVEL 3.9 MG/DL (2.5-4.9); POTASSIUM SERUM 4.3 MEQ/L (3.5-5.1); SODIUM LEVEL 144 MEQ/L (136-145)
[2018-03-19] MEDS: VILANTEROL INH (07:25)
[2018-03-19] MEDS: FLUTICASONE INH (07:25)
[2018-03-19] MEDS: FUROSEMIDE 40 MG TAB PO (09:00)
[2018-03-19] MEDS: TUSSICAPS ER 10/8MG CAPSULE PO ×2 (09:09→20:24)
[2018-03-19] MEDS: predniSONE 20 MG TAB PO (09:09)
[2018-03-19] MEDS: VERAPAMIL 120 MG SR TAB PO (09:15)
[2018-03-19] MEDS: HEPARIN SOD (PORCINE) 5000 UNITS/ML VIAL SC ×2 (09:15→20:24)
[2018-03-19] MEDS: METOCLOPRAMIDE INJ 10MG/2ML VIAL (J2765) IV (10:28)
[2018-03-19] MEDS: KETOROLAC 30 MG/ML VIAL (J1885) IV (10:29)
[2018-03-19] MEDS: LEVALBUTEROL 1.25 MG/0.5 ML CONCENTRATE NEB INH ×2 (11:27→15:18)
[2018-03-19] MEDS ORDERED: FIORICET TAB PO (12:15)
[2018-03-19] MEDS: diphenhydrAMINE INJ 50MG/ML VIAL (J1200) IV (13:09)
[2018-03-19] MEDS: ZONISAMIDE 50 MG CAP (ZONEGRAN) PO ×2 (13:09→20:24)
[2018-03-19] MEDS: LevoFLOXacin 500 MG TABLET PO (18:28)
[2018-03-19] MEDS: traZODone 100 MG TAB PO (20:23)
[2018-03-19] MEDS: ATORVASTATIN 20 MG TAB PO (20:24)
[2018-03-19] MEDS: PANTOPRAZOLE 40MG TAB (PROTONIX) PO (20:24)
[2018-03-19] MEDS: MONTELUKAST 10 MG TAB PO (20:24)
[2018-03-20] MEDS: FLUTICASONE INH (08:55)
[2018-03-20] MEDS: VILANTEROL INH (08:55)
[2018-03-20] MEDS: ZONISAMIDE 50 MG CAP (ZONEGRAN) PO ×2 (09:59→20:04)
[2018-03-20] MEDS: TUSSICAPS ER 10/8MG CAPSULE PO ×2 (09:59→20:03)
[2018-03-20] MEDS: HEPARIN SOD (PORCINE) 5000 UNITS/ML VIAL SC ×2 (09:59→20:04)
[2018-03-20] MEDS: predniSONE 20 MG TAB PO (09:59)
[2018-03-20] MEDS: VERAPAMIL 120 MG SR TAB PO (10:00)
[2018-03-20] MEDS: FIORICET TAB PO (15:19)
[2018-03-20] MEDS: LEVALBUTEROL 1.25 MG/0.5 ML CONCENTRATE NEB INH (15:31)
[2018-03-20] MEDS: LevoFLOXacin 500 MG TABLET PO (17:48)
[2018-03-20] MEDS: traZODone 100 MG TAB PO (20:03)
[2018-03-20] MEDS: PANTOPRAZOLE 40MG TAB (PROTONIX) PO (20:03)
[2018-03-20] MEDS: MONTELUKAST 10 MG TAB PO (20:04)
[2018-03-20] MEDS: ATORVASTATIN 20 MG TAB PO (20:04)
[2018-03-21] MEDS: ONDANSETRON 4MG/2ML VIAL (J2405) IV (00:31)
[2018-03-21] MEDS: VILANTEROL INH (07:40)
[2018-03-21] MEDS: FLUTICASONE INH (07:40)
[2018-03-21] MEDS: predniSONE 20 MG TAB PO (09:49)
[2018-03-21] MEDS: VERAPAMIL 120 MG SR TAB PO (09:49)
[2018-03-21] MEDS: HEPARIN SOD (PORCINE) 5000 UNITS/ML VIAL SC ×2 (09:49→21:22)
[2018-03-21] MEDS: ZONISAMIDE 50 MG CAP (ZONEGRAN) PO ×2 (09:50→21:21)
[2018-03-21] MEDS: TUSSICAPS ER 10/8MG CAPSULE PO (09:50)
[2018-03-21 10:05] LABS: BASO % 0.1 % (0.0-1.0); EOS % 0.2 % (0.0-3.0); HEMATOCRIT 31.3 % (36.0-47.0); HEMOGLOBIN 10.1 g/dl (12.0-15.5); IMMATURE GRANULOCYTE % 3.7 % (0-3.0); LYMPH # 1.3 10^3/uL (1.5-4.5); MEAN CORPUSCULAR HEMOGLOBIN 28.7 pg (27.0-33.0); MEAN CORPUSCULAR HGB CONC 32.3 g/dl (32.0-36.5); MEAN CORPUSCULAR VOLUME 88.9 fl (80.0-96.0); MONO # 0.6 10^3/uL (0.0-0.8); NEUTROPHILS # 5.9 10^3/uL (1.8-7.7); PLATELET COUNT, AUTOMATED 563 10^3/uL (150-450); RED BLOOD COUNT 3.52 10^6/uL (4.00-5.40); WHITE BLOOD COUNT 8.1 10^3/uL (4.0-10.0)
[2018-03-21 10:28] LABS: ANION GAP 9 MEQ/L (8-16); BLOOD UREA NITROGEN 22 MG/DL (7-18); CALCIUM LEVEL 9.3 MG/DL (8.8-10.2); CARBON DIOXIDE LEVEL 23 MEQ/L (21-32); CHLORIDE LEVEL 109 MEQ/L (98-107); CREATININE FOR GFR 1.15 MG/DL (0.55-1.30); GLOMERULAR FILTRATION RATE 50.7 (>45); GLUCOSE, FASTING 92 MG/DL (70-100); POTASSIUM SERUM 4.2 MEQ/L (3.5-5.1); SODIUM LEVEL 141 MEQ/L (136-145)
[2018-03-21] MEDS: FIORICET TAB PO (14:01)
[2018-03-21] MEDS: LevoFLOXacin 500 MG TABLET PO (17:47)
[2018-03-21] MEDS: PANTOPRAZOLE 40MG TAB (PROTONIX) PO (21:21)
[2018-03-21] MEDS: MONTELUKAST 10 MG TAB PO (21:21)
[2018-03-21] MEDS: traZODone 100 MG TAB PO (21:22)
[2018-03-21] MEDS: ATORVASTATIN 20 MG TAB PO (21:22)
[2018-03-22] MEDS: VILANTEROL INH (07:55)
[2018-03-22] MEDS: FLUTICASONE INH (07:55)
[2018-03-22] MEDS: ZONISAMIDE 50 MG CAP (ZONEGRAN) PO ×2 (10:16→20:21)
[2018-03-22] MEDS: FLUCONAZOLE 100 MG TAB PO (10:16)
[2018-03-22] MEDS: predniSONE 20 MG TAB PO (10:17)
[2018-03-22] MEDS: HEPARIN SOD (PORCINE) 5000 UNITS/ML VIAL SC ×2 (10:17→20:21)
[2018-03-22] MEDS: VERAPAMIL 120 MG SR TAB PO (10:17)
[2018-03-22] MEDS: NYSTATIN 500,000 U/5 ML SUSP UDC SS ×3 (13:24→20:21)
[2018-03-22] MEDS: traZODone 100 MG TAB PO (20:21)
[2018-03-22] MEDS: MONTELUKAST 10 MG TAB PO (20:22)
[2018-03-22] MEDS: PANTOPRAZOLE 40MG TAB (PROTONIX) PO (20:22)
[2018-03-22] MEDS: ATORVASTATIN 20 MG TAB PO (20:22)
[2018-03-23] MEDS: VILANTEROL INH (08:42)
[2018-03-23] MEDS: FLUTICASONE INH (08:42)
[2018-03-23] MEDS: predniSONE 20 MG TAB PO (09:57)
[2018-03-23] MEDS: FLUCONAZOLE 100 MG TAB PO (09:57)
[2018-03-23] MEDS: HEPARIN SOD (PORCINE) 5000 UNITS/ML VIAL SC ×2 (09:58→20:51)
[2018-03-23] MEDS: VERAPAMIL 120 MG SR TAB PO (09:58)
[2018-03-23] MEDS: NYSTATIN 500,000 U/5 ML SUSP UDC SS ×4 (09:59→20:51)
[2018-03-23] MEDS: ZONISAMIDE 50 MG CAP (ZONEGRAN) PO ×2 (10:03→21:03)
[2018-03-23] MEDS: FIORICET TAB PO ×2 (10:04→20:53)
[2018-03-23] MEDS ORDERED: BISACODYL 5 MG TAB PO (11:30)
[2018-03-23] MEDS: SENOKOT S TAB PO ×2 (11:56→20:52)
[2018-03-23] MEDS: MONTELUKAST 10 MG TAB PO (20:53)
[2018-03-23] MEDS: PANTOPRAZOLE 40MG TAB (PROTONIX) PO (20:53)
[2018-03-23] MEDS: traZODone 100 MG TAB PO (20:55)
[2018-03-23] MEDS: ATORVASTATIN 20 MG TAB PO (20:56)
[2018-03-23] MEDS ORDERED: SYMBICORT 80/4.5MCG INHALER 6GM INH (21:00)
[2018-03-24] MEDS: FIORICET TAB PO (07:43)
[2018-03-24] MEDS: FLUTICASONE INH (07:51)
[2018-03-24] MEDS: VILANTEROL INH (07:51)
[2018-03-24] MEDS: HEPARIN SOD (PORCINE) 5000 UNITS/ML VIAL SC ×2 (08:43→20:42)
[2018-03-24] MEDS: FLUCONAZOLE 100 MG TAB PO (08:43)
[2018-03-24] MEDS: NYSTATIN 500,000 U/5 ML SUSP UDC SS ×4 (08:43→20:42)
[2018-03-24] MEDS: SENOKOT S TAB PO ×2 (08:44→20:43)
[2018-03-24] MEDS: ZONISAMIDE 50 MG CAP (ZONEGRAN) PO (08:44)
[2018-03-24] MEDS: predniSONE 10 MG TAB PO (08:44)
[2018-03-24] MEDS: VERAPAMIL 120 MG SR TAB PO (08:44)
[2018-03-24] MEDS: MAG SULF 1GM/100ML (MAG RUN) 1 GM in APPROPRIATE DILUENT 1 EA IV (18:32)
[2018-03-24] MEDS: VALPROATE SOD INJ 1,000 MG in D5W 50 ML IV (19:56)
[2018-03-24] MEDS: ATORVASTATIN 20 MG TAB PO (20:42)
[2018-03-24] MEDS: DIVALPROEX 500MG *ER* TAB PO (20:43)
[2018-03-24] MEDS: MONTELUKAST 10 MG TAB PO (20:43)
[2018-03-24] MEDS: PANTOPRAZOLE 40MG TAB (PROTONIX) PO (20:43)
[2018-03-24] MEDS: traZODone 100 MG TAB PO (20:44)
[2018-03-25] MEDS: ACETAMINOPHEN TAB 650MG DOSE (2X325MG) PO (00:20)
[2018-03-25] MEDS: ONDANSETRON 4MG/2ML VIAL (J2405) IV ×2 (05:08→13:10)
[2018-03-25 06:50] LABS: BASO % 0.3 % (0.0-1.0); EOS # 0.1 10^3/uL (0.0-0.50); EOS % 0.9 % (0.0-3.0); HEMATOCRIT 33.6 % (36.0-47.0); HEMOGLOBIN 10.8 g/dl (12.0-15.5); IMMATURE GRANULOCYTE % 1.3 % (0-3.0); LYMPH # 1.3 10^3/uL (1.5-4.5); LYMPH % 16.8 % (24.0-44.0); MEAN CORPUSCULAR HEMOGLOBIN 29.3 pg (27.0-33.0); MEAN CORPUSCULAR HGB CONC 32.1 g/dl (32.0-36.5); MEAN CORPUSCULAR VOLUME 91.1 fl (80.0-96.0); MONO # 0.5 10^3/uL (0.0-0.8); MONO % 6.5 % (0.0-5.0); NEUTROPHILS # 5.6 10^3/uL (1.8-7.7); NEUTROPHILS % 74.2 % (36.0-66.0); PLATELET COUNT, AUTOMATED 453 10^3/uL (150-450); RED BLOOD COUNT 3.69 10^6/uL (4.00-5.40); WHITE BLOOD COUNT 7.5 10^3/uL (4.0-10.0)
[2018-03-25 07:05] LABS: ANION GAP 8 MEQ/L (8-16); BLOOD UREA NITROGEN 16 MG/DL (7-18); CALCIUM LEVEL 9.3 MG/DL (8.8-10.2); CARBON DIOXIDE LEVEL 22 MEQ/L (21-32); CHLORIDE LEVEL 110 MEQ/L (98-107); CREATININE FOR GFR 1.28 MG/DL (0.55-1.30); GLOMERULAR FILTRATION RATE 44.8 (>45); GLUCOSE, FASTING 87 MG/DL (70-100); POTASSIUM SERUM 3.6 MEQ/L (3.5-5.1); SODIUM LEVEL 140 MEQ/L (136-145)
[2018-03-25 07:05] LABS: C REACTIVE PROTEIN QUANTITATIV < 0.30 MG/DL (0.00-0.30)
[2018-03-25 07:12] LABS: ERYTHROCYTE SEDIMENTATION RATE 50 mm/hr (0-30)
[2018-03-25] MEDS: FLUTICASONE INH (08:30)
[2018-03-25] MEDS: VILANTEROL INH (08:30)
[2018-03-25] MEDS: VERAPAMIL 120 MG SR TAB PO (08:48)
[2018-03-25] MEDS: KETOROLAC 30 MG/ML VIAL (J1885) IV (08:49)
[2018-03-25] MEDS: NYSTATIN 500,000 U/5 ML SUSP UDC SS ×4 (08:49→21:09)
[2018-03-25] MEDS: SENOKOT S TAB PO ×2 (08:49→21:10)
[2018-03-25] MEDS: FLUCONAZOLE 100 MG TAB PO (08:49)
[2018-03-25] MEDS: DIVALPROEX 500MG *ER* TAB PO ×2 (08:49→21:09)
[2018-03-25] MEDS: predniSONE 10 MG TAB PO (08:49)
[2018-03-25] MEDS: HEPARIN SOD (PORCINE) 5000 UNITS/ML VIAL SC ×2 (08:50→21:11)
[2018-03-25] MEDS: CLOTRIMAZOLE 1% VAG CR 45 GM TOP (09:46)
[2018-03-25] MEDS: LIDOCAINE 1% SDV 5 ML VIAL SC (17:01)
[2018-03-25] MEDS: traZODone 100 MG TAB PO (21:09)
[2018-03-25] MEDS: PANTOPRAZOLE 40MG TAB (PROTONIX) PO (21:10)
[2018-03-25] MEDS: ATORVASTATIN 20 MG TAB PO (21:10)
[2018-03-25] MEDS: MONTELUKAST 10 MG TAB PO (21:10)
[2018-03-26] MEDS: diphenhydrAMINE INJ 50MG/ML VIAL (J1200) IV (03:21)
[2018-03-26] MEDS: ACETAMINOPHEN TAB 650MG DOSE (2X325MG) PO ×2 (03:22→16:57)
[2018-03-26] MEDS: VILANTEROL INH (07:56)
[2018-03-26] MEDS: FLUTICASONE INH (07:56)
[2018-03-26] MEDS: ONDANSETRON 4MG/2ML VIAL (J2405) IV ×2 (08:16→16:57)
[2018-03-26] MEDS: HEPARIN SOD (PORCINE) 5000 UNITS/ML VIAL SC ×2 (08:16→21:22)
[2018-03-26] MEDS: NYSTATIN 500,000 U/5 ML SUSP UDC SS ×4 (08:16→21:22)
[2018-03-26] MEDS: predniSONE 10 MG TAB PO (08:17)
[2018-03-26] MEDS: DIVALPROEX 500MG *ER* TAB PO ×2 (08:17→21:23)
[2018-03-26] MEDS: FLUCONAZOLE 100 MG TAB PO (08:17)
[2018-03-26] MEDS: SENOKOT S TAB PO ×2 (08:18→21:00)
[2018-03-26] MEDS: CLOTRIMAZOLE 1% VAG CR 45 GM TOP (08:18)
[2018-03-26] MEDS: VERAPAMIL 120 MG SR TAB PO (08:34)
[2018-03-26] MEDS ORDERED: MECLIZINE 25 MG TABLET PO (10:30)
[2018-03-26 10:51] LABS: HEMATOCRIT 34.6 % (36.0-47.0); HEMOGLOBIN 10.9 g/dl (12.0-15.5); MEAN CORPUSCULAR HEMOGLOBIN 29.4 pg (27.0-33.0); MEAN CORPUSCULAR HGB CONC 31.5 g/dl (32.0-36.5); MEAN CORPUSCULAR VOLUME 93.3 fl (80.0-96.0); PLATELET COUNT, AUTOMATED 394 10^3/uL (150-450); RED BLOOD COUNT 3.71 10^6/uL (4.00-5.40); RED CELL DISTRIBUTION WIDTH 16.9 % (11.5-14.5); WHITE BLOOD COUNT 10.7 10^3/uL (4.0-10.0)
[2018-03-26 11:19] LABS: ANION GAP 12 MEQ/L (8-16); BLOOD UREA NITROGEN 23 MG/DL (7-18); CALCIUM LEVEL 9.5 MG/DL (8.8-10.2); CARBON DIOXIDE LEVEL 19 MEQ/L (21-32); CHLORIDE LEVEL 109 MEQ/L (98-107); CREATININE FOR GFR 1.43 MG/DL (0.55-1.30); GLOMERULAR FILTRATION RATE 39.5 (>45); GLUCOSE, FASTING 101 MG/DL (70-100); SODIUM LEVEL 140 MEQ/L (136-145)
[2018-03-26] MEDS: MECLIZINE 25 MG TABLET PO (13:07)
[2018-03-26] MEDS: NS 0.45% 1,000 ML IV ×2 (13:17→23:46)
[2018-03-26] MEDS: ATORVASTATIN 20 MG TAB PO (21:22)
[2018-03-26] MEDS: MONTELUKAST 10 MG TAB PO (21:23)
[2018-03-26] MEDS: traZODone 100 MG TAB PO (21:23)
[2018-03-26] MEDS: PANTOPRAZOLE 40MG TAB (PROTONIX) PO (21:23)
[2018-03-26 22:58] LABS: ANION GAP 9 MEQ/L (8-16); BLOOD UREA NITROGEN 19 MG/DL (7-18); CALCIUM LEVEL 9.2 MG/DL (8.8-10.2); CARBON DIOXIDE LEVEL 22 MEQ/L (21-32); CHLORIDE LEVEL 108 MEQ/L (98-107); CREATININE FOR GFR 1.15 MG/DL (0.55-1.30); GLOMERULAR FILTRATION RATE 50.7 (>45); GLUCOSE, FASTING 100 MG/DL (70-100); POTASSIUM SERUM 3.8 MEQ/L (3.5-5.1); SODIUM LEVEL 139 MEQ/L (136-145)
[2018-03-27] MEDS ORDERED: MOM 30ML SUSPENSION UDC PO (06:15)
[2018-03-27] MEDS ORDERED: FLEET ENEMA PR (06:15)
[2018-03-27 07:40] LABS: HEMATOCRIT 30.4 % (36.0-47.0); HEMOGLOBIN 9.9 g/dl (12.0-15.5); MEAN CORPUSCULAR HEMOGLOBIN 29.8 pg (27.0-33.0); MEAN CORPUSCULAR HGB CONC 32.6 g/dl (32.0-36.5); MEAN CORPUSCULAR VOLUME 91.6 fl (80.0-96.0); PLATELET COUNT, AUTOMATED 319 10^3/uL (150-450); RED BLOOD COUNT 3.32 10^6/uL (4.00-5.40); RED CELL DISTRIBUTION WIDTH 16.7 % (11.5-14.5); WHITE BLOOD COUNT 5.2 10^3/uL (4.0-10.0)
[2018-03-27] MEDS: FLUTICASONE INH (08:07)
[2018-03-27] MEDS: VILANTEROL INH (08:07)
[2018-03-27] MEDS: SENOKOT S TAB PO (09:00)
[2018-03-27] MEDS: VERAPAMIL 120 MG SR TAB PO (09:00)
[2018-03-27] MEDS: DIVALPROEX 500MG *ER* TAB PO (09:17)
[2018-03-27] MEDS: predniSONE 10 MG TAB PO (09:17)
[2018-03-27] MEDS: HEPARIN SOD (PORCINE) 5000 UNITS/ML VIAL SC (09:18)
[2018-03-27] MEDS: FLUCONAZOLE 100 MG TAB PO (09:18)
[2018-03-27] MEDS: NYSTATIN 500,000 U/5 ML SUSP UDC SS (09:18)
[2018-03-27] MEDS: CLOTRIMAZOLE 1% VAG CR 45 GM TOP (09:19)
== END 2018-03-27 13:15 | disposition home or self-care (01) | DRG 853 ==
LOC: M MSPAV 03-16 18:08 → M PED 03-24 18:58 → M ED 08:57 → M ED INP 14:34 → M PCU 21:17
PROC: 03BT0ZX Excision of Left Temporal Artery, Open Approach, Diagnostic (ICD-10-PCS; principal; 2018-03-17 11:10)
PROC: 3E0X3BZ Introduction of Anesthetic Agent into Cranial Nerves, Percutaneous Approach (ICD-10-PCS; 2018-03-17 19:05)
PROC: 3E0U3BZ Introduction of Anesthetic Agent into Joints, Percutaneous Approach (ICD-10-PCS; 2018-03-17 19:05)
DX: A41.9 Sepsis, unspecified organism (principal); J18.9 Pneumonia, unspecified organism; I47.1 Supraventricular tachycardia; N17.9 Acute kidney failure, unspecified; E87.2 Acidosis; J45.901 Unspecified asthma with (acute) exacerbation; B37.0 Candidal stomatitis; R65.20 Severe sepsis without septic shock; I10 Essential (primary) hypertension; Z88.0 Allergy status to penicillin; Z88.8 Allergy status to other drugs, medicaments and biological substances; Z88.1 Allergy status to other antibiotic agents; Z91.013 Allergy to seafood; Z79.899 Other long term (current) drug therapy; E66.9 Obesity, unspecified; Z68.37 Body mass index [BMI] 37.0-37.9, adult; R19.7 Diarrhea, unspecified; R11.2 Nausea with vomiting, unspecified; G43.909 Migraine, unspecified, not intractable, without status migrainosus; B37.3 Candidiasis of vulva and vagina; M47.812 Spondylosis without myelopathy or radiculopathy, cervical region; M54.81 Occipital neuralgia

== ENCOUNTER → 2018-04-04 | Outpatient (CLI) | payer OTHER ==
[2018-04-04 13:07] LABS: BASO % 0.6 % (0.0-1.0); EOS # 0.2 10^3/uL (0.0-0.50); EOS % 4.2 % (0.0-3.0); HEMATOCRIT 36.4 % (36.0-47.0); HEMOGLOBIN 11.5 g/dl (12.0-15.5); IMMATURE GRANULOCYTE % 0.6 % (0-3.0); LYMPH # 0.9 10^3/uL (1.5-4.5); LYMPH % 16.8 % (24.0-44.0); MEAN CORPUSCULAR HEMOGLOBIN 29.6 pg (27.0-33.0); MEAN CORPUSCULAR HGB CONC 31.6 g/dl (32.0-36.5); MEAN CORPUSCULAR VOLUME 93.8 fl (80.0-96.0); MONO # 0.4 10^3/uL (0.0-0.8); MONO % 8.7 % (0.0-5.0); NEUTROPHILS # 3.5 10^3/uL (1.8-7.7); NEUTROPHILS % 69.1 % (36.0-66.0); PLATELET COUNT, AUTOMATED 233 10^3/uL (150-450); RED BLOOD COUNT 3.88 10^6/uL (4.00-5.40); RED CELL DISTRIBUTION WIDTH 17.2 % (11.5-14.5); WHITE BLOOD COUNT 5.1 10^3/uL (4.0-10.0)
[2018-04-04 13:18] LABS: ALBUMIN 3.3 GM/DL (3.2-5.2); ALBUMIN/GLOBULIN RATIO 1.06 (1.00-1.93); ALKALINE PHOSPHATASE 65 U/L (45-117); ALT/SGPT 47 U/L (12-78); ANION GAP 9 MEQ/L (8-16); AST/SGOT 20 U/L (7-37); BILIRUBIN,TOTAL 0.4 MG/DL (0.2-1.0); BLOOD UREA NITROGEN 11 MG/DL (7-18); CALCIUM LEVEL 9.3 MG/DL (8.8-10.2); CARBON DIOXIDE LEVEL 24 MEQ/L (21-32); CHLORIDE LEVEL 113 MEQ/L (98-107); CHOLESTEROL LEVEL 175 MG/DL (<200); CHOLESTEROL RISK RATIO 3.977 (<5); CREATININE FOR GFR 0.86 MG/DL (0.55-1.30); GLOMERULAR FILTRATION RATE > 60.0 (>45); GLUCOSE, FASTING 99 MG/DL (70-100); HDL CHOLESTEROL 44 MG/DL (>40); IRON (FE) 49 UG/DL (50-170); LDL CHOLESTEROL 88.2 MG/DL (<100); NON-HDL-C 131 MG/DL; POTASSIUM SERUM 3.8 MEQ/L (3.5-5.1); SODIUM LEVEL 146 MEQ/L (136-145); TOTAL PROTEIN 6.4 GM/DL (6.4-8.2); TRIGLYCERIDES LEVEL 214 MG/DL (<150)
[2018-04-04 13:25] LABS: ESTIMATED AVERAGE GLUCOSE 108 MG/DL (60-110); HEMOGLOBIN A1c 5.4 %
== END ==
LOC: M SMT 10:55
DX: E61.1 Iron deficiency (principal); E11.9 Type 2 diabetes mellitus without complications; E78.4 Other hyperlipidemia; I10 Essential (primary) hypertension
CPT/HCPCS: 83540

== ENCOUNTER → 2018-05-09 | Outpatient (CLI) | payer OTHER | LOC: M SMT 11:22 | DX: R91.8 Other nonspecific abnormal finding of lung field (principal) ==

== ENCOUNTER → 2018-06-25 | Outpatient (CLI) | payer OTHER | LOC: M RAD 10:20 | DX: Z12.31 Encounter for screening mammogram for malignant neoplasm of breast (principal) ==

== ENCOUNTER → 2018-07-02 | Outpatient (CLI) | payer OTHER | LOC: M WHC 11:11 | DX: M81.0 Age-related osteoporosis without current pathological fracture (principal); M85.851 Other specified disorders of bone density and structure, right thigh; M85.852 Other specified disorders of bone density and structure, left thigh | CPT/HCPCS: 77080 ==

== ENCOUNTER → 2018-10-08 | Outpatient (CLI) | payer OTHER ==
[~2018-10-08] MED LIST changes: +ATOR40TA75 PO; +BENA25CA4 PO; +BREO1INH3 INH; +DEPA500T2 PO; +FLUC10TA PO; +LASI40TA9 PO; +LEVA12INH INH; +LEVAINH INH; +MECL-68 PO; +MICA5TAB PO; +NEOSOIN TOP; +NEXI40GR PO; +QNAS80AE NARES; +SING10TA32 PO; +SPIR-10 PO; +TELM1TAB37 PO; -VENTAER IN; +VENTAER INH; +VERA12TASA PO; +VERA180C PO; +XYZA5TAB2 PO
[2018-10-08 14:16] LABS: BASO % 0.5 % (0.0-1.0); EOS # 0.2 10^3/uL (0.0-0.50); EOS % 2.9 % (0.0-3.0); HEMATOCRIT 36.9 % (36.0-47.0); HEMOGLOBIN 12.2 g/dl (12.0-15.5); LYMPH # 1.7 10^3/uL (1.5-4.5); LYMPH % 21.1 % (24.0-44.0); MEAN CORPUSCULAR HEMOGLOBIN 29.3 pg (27.0-33.0); MEAN CORPUSCULAR HGB CONC 33.1 g/dl (32.0-36.5); MEAN CORPUSCULAR VOLUME 88.5 fl (80.0-96.0); MONO # 0.5 10^3/uL (0.0-0.8); MONO % 6.6 % (0.0-5.0); NEUTROPHILS # 5.4 10^3/uL (1.8-7.7); NEUTROPHILS % 68.5 % (36.0-66.0); PLATELET COUNT, AUTOMATED 432 10^3/uL (150-450); RED BLOOD COUNT 4.17 10^6/uL (4.00-5.40); WHITE BLOOD COUNT 7.9 10^3/uL (4.0-10.0)
[2018-10-08 14:22] LABS: ALBUMIN 4.3 GM/DL (3.2-5.2); BILIRUBIN,TOTAL 0.5 MG/DL (0.2-1.0); CHOLESTEROL RISK RATIO 3.345 (<5); CREATININE FOR GFR 1.27 MG/DL (0.55-1.30); GLOMERULAR FILTRATION RATE 45.1 (>45); POTASSIUM SERUM 4.2 MEQ/L (3.5-5.1); TOTAL PROTEIN 7.6 GM/DL (6.4-8.2)
[2018-10-08 15:01] LABS: HEMOGLOBIN A1c 5.7 %
== END ==
LOC: M SMT 09:54
PROVIDERS: ATTEND Nurse Practitioner Family
DX: I10 Essential (primary) hypertension (principal); K21.9 Gastro-esophageal reflux disease without esophagitis; E11.9 Type 2 diabetes mellitus without complications; E78.49 Other hyperlipidemia

== ENCOUNTER → 2018-10-23 | Outpatient (CLI) | payer OTHER ==
[2018-10-23 18:53] LABS: CALCIUM LEVEL 9.3 MG/DL (8.8-10.2); CREATININE FOR GFR 1.15 MG/DL (0.55-1.30); GLOMERULAR FILTRATION RATE 50.6 (>45); POTASSIUM SERUM 4.2 MEQ/L (3.5-5.1)
== END ==
LOC: M SMT 13:01
PROVIDERS: ATTEND Nurse Practitioner Family
DX: I10 Essential (primary) hypertension (principal)

== ENCOUNTER → 2019-01-06 | Outpatient (CLI) | payer OTHER ==
[~2019-01-06] MED LIST changes: -/ESOM40CA OR; +NEOM28.32 TOP; -NEOSOIN TOP; +NEXI1CAP3 OR
--- NOTE | 2019-01-06 11:20 | REP ---
Chest two views HISTORY: Bronchitis Comparison: 05/09/2018 The lungs are clear. The heart is normal in size. The pulmonary vasculature is normal in appearance. The bony structure is intact. IMPRESSION: No acute disease. Electronically Signed by Carlos York MD 01/06/2019 11:12 A
[2019-01-06 18:43] LABS: BASO # 0.1 10^3/uL (0.0-0.2); BASO % 0.8 % (0.0-1.0); EOS # 0.2 10^3/uL (0.0-0.50); EOS % 2.2 % (0.0-3.0); HEMATOCRIT 38.3 % (36.0-47.0); HEMOGLOBIN 12.3 g/dl (12.0-15.5); LYMPH # 2.1 10^3/uL (1.5-4.5); LYMPH % 27.8 % (24.0-44.0); MEAN CORPUSCULAR HEMOGLOBIN 29.9 pg (27.0-33.0); MEAN CORPUSCULAR HGB CONC 32.1 g/dl (32.0-36.5); MONO # 0.4 10^3/uL (0.0-0.8); MONO % 5.8 % (0.0-5.0); NEUTROPHILS # 4.7 10^3/uL (1.8-7.7); NEUTROPHILS % 62.9 % (36.0-66.0); PLATELET COUNT, AUTOMATED 406 10^3/uL (150-450); RED BLOOD COUNT 4.12 10^6/uL (4.00-5.40); WHITE BLOOD COUNT 7.4 10^3/uL (4.0-10.0)
[2019-01-06 18:45] LABS: CALCIUM LEVEL 10.2 MG/DL (8.8-10.2); CREATININE FOR GFR 1.1 MG/DL (0.55-1.30); GLOMERULAR FILTRATION RATE 53.2 (>45); POTASSIUM SERUM 3.8 MEQ/L (3.5-5.1)
== END ==
LOC: M SMT 10:41
PROVIDERS: ATTEND Nurse Practitioner Family
DX: J20.9 Acute bronchitis, unspecified (principal)

== ENCOUNTER → 2020-02-15 | Outpatient (CLI) | payer MEDICARE, OTHER ==
[~2020-02-15] MED LIST changes: -MECL-68 PO; +MECL1TAB31 PO
--- NOTE | 2020-02-19 20:10 | SLEEPCENT ---
DATE OF PROCEDURE: 02/15/2020 ORDERED BY: Dr. Kody Boyd. Nocturnal polysomnography was performed for evaluation of sleep physiology in this patient with a history of excessive somnolence and snoring. 6 hours and 6 minutes of data were reviewed. There were 293 minutes of sleep identified. Sleep latency was normal at 11.5 minutes. Rapid eye movement (REM) latency was normal at 84 minutes. Sleep architecture showed fragmentation. Overall sleep efficiency 81.1%. The patient's electrocardiogram showed a sinus rhythm with an average heart rate of 65 beats per minute. Rate ranged 55-80. EEG showed normal waveforms for awake and sleep. There were 88 respiratory events identified of 10 seconds in duration or greater for an apnea-hypopnea index of 18. The events were primarily obstructive, not exclusive to sleep stage nor body posture. Arousals from respiratory events occurred seven times per hour and oxygen desaturations were seen into the 80s. There was some limb activity as well. Limb movement arousal index was 5.5 and snoring was noted over the course of the study. IMPRESSION: Moderate obstructive sleep apnea syndrome (G47.33). Apnea-hypopnea index 18. RECOMMENDATIONS: The patient should be encouraged to return to the sleep disorder center for pressure therapy. In the interim, alcohol and sedative avoidance should be practiced and caution exercised during the operation of motor vehicles.
== END ==
LOC: M SLEEP 20:00
PROVIDERS: ATTEND Internal Medicine Pulmonary Disease
DX: G47.33 Obstructive sleep apnea (adult) (pediatric) (principal)

== ENCOUNTER → 2020-02-17 | Outpatient (CLI) | payer MEDICARE, OTHER ==
--- NOTE | 2020-02-17 09:51 | REPMRS ---
Patient History The patient states she had a clinical breast exam in January 2020.The patient states she had a clinical breast exam in January 2020.No known family history of cancer. Benign core biopsy of the right breast. Digital Woman Screen Mammo: February 17, 2020 - Exam #: [id number] Bilateral CC and MLO view(s) were taken. Technologist: Kathrine Barrios, Technologist Prior study comparison: June 25, 2018, bilateral digital mammo screening bilat, performed at [facility]. February 06, 2017, bilateral digital mammo screening bilat, performed at [facility]. January 30, 2013, right breast real time ultrasound, performed at [facility]. FINDINGS: The breast tissue is almost entirely fat. The Volpara volumetric breast density category is: A. There has been no change in the appearance of the mammogram from the prior studies. There is no interval development of dominant mass, architectural distortion, or grouped microcalcification typical of malignancy. 3-D tomosynthesis shows no additional findings. Assessment: BI-RADS/ACR category 1 mammogram. Negative Mammogram. Recommendation Routine screening mammogram of both breasts in 1 year (for women over age 40). This patient's Lifetime Breast Cancer RIsk is estimated at 5.7 %. This mammogram was interpreted with the aid of an FDA-approved computer-aided dectection system. Electronically Signed By: Nemesio Moura MD 02/17/20 [id number]
== END ==
LOC: M WHC 08:47
PROVIDERS: ATTEND Registered Nurse
DX: Z12.31 Encounter for screening mammogram for malignant neoplasm of breast (principal)

== ENCOUNTER → 2020-04-06 | Outpatient (CLI) | payer MEDICARE, OTHER ==
--- NOTE | 2020-04-29 14:27 | SLEEP ---
DATE: 04/06/2020 ORDERED BY: Dr. Kody Boyd Nocturnal polysomnography was performed for the titration of pressure therapy in this patient with obstructive sleep apnea syndrome, apnea-hypopnea index of 18. For testing, patient was fit with a ResMed Quattro full-face mask of small size. There was 4 cm of water pressure applied to the circuit, and the lights were extinguished. There was 7 hours and 9 minutes of data reviewed. There was 236 minutes of sleep identified. Sleep latency was prolonged at 125 minutes. REM latency was normal at 63 minutes. Sleep architecture improved with optimal pressure therapy. There were two REM cycles noted. Overall sleep efficiency was 55.6% due to periods of wake after sleep onset. Respiratory events were fully palliated with CPAP at a pressure of +8. There was minimal limb activity noted. IMPRESSION: Obstructive sleep apnea syndrome (G47.33). RECOMMENDATION: Nightly use of pressure therapy, 8 cm of water. MTDD
== END ==
LOC: M SLEEP 20:00
PROVIDERS: ATTEND Internal Medicine Pulmonary Disease
DX: G47.33 Obstructive sleep apnea (adult) (pediatric) (principal)

== ENCOUNTER → 2020-10-27 | Outpatient (REF) | payer MEDICARE, OTHER | LOC: M LAB REF 13:14 | PROVIDERS: ATTEND Registered Nurse | DX: E83.52 Hypercalcemia (principal) ==

== ENCOUNTER → 2021-04-13 | Outpatient (CLI) | payer MEDICARE, OTHER ==
--- NOTE | 2021-04-13 12:17 | DEXAMM ---
INDICATION: Z13.820 SCREENING FOR OSTEOPOROSIS. COMPARISON: Comparison study July 02, 2018 and November 04, 2001. TECHNIQUE: Bone density was measured using dual-energy x-ray absorptionmetry (DEXA). FINDINGS: AP SPINE L1-L4 BMD 1.119 g/cm2 Young Adult T-Score -0.6 Age Matched Z-Score 1.0. LT FEMUR, TOTAL BMD 0.929 g/cm2 Young Adult T-Score -0.6 Age Matched Z-Score 0.7. LT NECK BMD 0.798 g/cm2 Young Adult T-Score -1.7 Age Matched Z-Score -0.2. RT FEMUR, TOTAL BMD 0.909 g/cm2 Young Adult T-Score -0.8 Age Matched Z-Score 0.5. RT NECK BMD 0.836 g/cm2 Young Adult T-Score -1.5 Age Matched Z-Score 0.1. IMPRESSION: There is normal bone density of the spine. There is low bone density of the left hip. There is low bone density of the right hip. The density of the spine has decreased 17.2% since the initial exam on November 04, 2001. The density of the spine increased 0.8% since most recent exam on July 02, 2018. The density of the left hip has decreased 7.2% since initial exam on November 04, 2001. The density of the left hip has increased 3.9% since most recent exam on July 02, 2018. The density of the right hip has decreased 3.9% since the initial exam on June 15, 2008. The density of the right hip has increased 2.0% since the most recent exam on July 02, 2018. FOLLOW-UP: Recommendation for the next bone density exam: 2 years. <Electronically signed by Nemesio Moura > 04/13/21 [id number]
== END ==
LOC: M WHC 09:23
PROVIDERS: ATTEND Registered Nurse
DX: Z13.820 Encounter for screening for osteoporosis (principal); M85.88 Other specified disorders of bone density and structure, other site

== ENCOUNTER → 2021-06-01 | Outpatient (CLI) | payer MEDICARE, OTHER ==
--- NOTE | 2021-06-02 14:48 | REPVR ---
PROCEDURE INFORMATION: Exam: CT Head Without Contrast Exam date and time: 06/01/2021 11:39 AM Age: 65 years old Clinical indication: Injury or trauma; Fall; Concussion/head injury; Consciousness not specified; Injury date: March 2021; Injury details: Fell and hit left side of forehead onto car; Additional info: Headaches, S/P fall TECHNIQUE: Imaging protocol: Computed tomography of the head without contrast. Radiation optimization: All CT scans at this facility use at least one of these dose optimization techniques: automated exposure control; mA and/or kV adjustment per patient size (includes targeted exams where dose is matched to clinical indication); or iterative reconstruction. COMPARISON: MRI-Brain without Contrast 03/26/2018 2:37 PM FINDINGS: Brain: There is no acute intracranial hemorrhage. No extra-axial fluid collection. No evidence of acute infarct. Lynne white differentiation is intact. There is no evidence of mass. There is no mass effect or midline shift. Cerebral ventricles: No ventriculomegaly. Paranasal sinuses: There is fluid in left maxillary sinus with mucosal thickening. There is small amount of fluid in right maxillary sinus. There is mucosal thickening in right greater than left frontal and right anterior ethmoid sinuses. Mastoid air cells: Mastoid air cells and middle ear cavities are well developed and well aerated. Vasculature: There are carotid arteries calcifications. Bones/joints: No acute skull fracture. Please note that the entire maxillary sinuses are not included in field of view of this examination to assess fracture. No fracture visualized portions of maxillary sinuses or facial bones. Soft tissues: Unremarkable as visualized. IMPRESSION: 1. No evidence of acute intracranial abnormality. No acute hemorrhage. No evidence of acute infarct or mass. 2. Sinus findings as described. Electronically signed by: Luz Ford On 06/02/2021 14:47:42 PM
== END ==
LOC: M PLAIMG 11:18
PROVIDERS: ATTEND Registered Nurse
DX: R51.9 Headache, unspecified (principal); Z91.81 History of falling

== ENCOUNTER → 2021-06-02 | Outpatient (CLI) | payer MEDICARE, OTHER ==
--- NOTE | 2021-06-02 10:17 | REPMRS ---
Patient History The patient states she had a clinical breast exam on 05-19-2021. Family history of colorectal cancer at age 64 in sister.Tomosynthesis is performed. Benign core biopsy of the right breast. No Hormone Replacement Therapy Volpara breast density is b. Tyrer-zick lifetime risk of breast cancer 5.4%. Patient states no breast complaints today. Patient has signed MRS History Sheet. Digital Woman Screen Mammo: June 02, 2021 - Exam #: [id number] Bilateral CC and MLO view(s) were taken. Technologist: Carol Cano, Environmental Professional Prior study comparison: February 17, 2020, bilateral digital woman screen mammo performed at [facility]. June 25, 2018, bilateral digital mammo screening bilat, performed at [facility]. FINDINGS: There are scattered fibroglandular densities. There has been no change in the appearance of the mammogram from the prior studies. There is a mild amount of residual fibroglandular tissue which is fairly symmetric. There is no interval development of dominant mass, architectural distortion, or clustered microcalcification suggestive of malignancy. Assessment: BI-RADS/ACR category 1 mammogram. Negative Mammogram. Recommendation Routine screening mammogram in 1 year (for women over age 40). This mammogram was interpreted with the aid of an FDA-approved computer-aided dectection system. Electronically Signed By: Eleazar Lynne MD 06/02/21 [id number]
== END ==
LOC: M WHC 09:24
PROVIDERS: ATTEND Registered Nurse
DX: Z12.31 Encounter for screening mammogram for malignant neoplasm of breast (principal)

== ENCOUNTER → 2021-06-15 | Outpatient (CLI) | payer MEDICARE, OTHER ==
[~2021-06-15] MED LIST changes: +VERA120T67 PO; -VERA12TASA PO
--- NOTE | 2021-06-15 16:23 | REP ---
INDICATION: Assess stenosis TECHNIQUE: Carotid ultrasonography was performed bilaterally FINDINGS: Right: CCA systolic: 134.2 centimeters/second CCA diastolic: 28.4 centimeters/second ICA systolic: 75.1 centimeters/second ICA diastolic: 22.1 centimeters/second ICA CCA ratio: 0.56 Left: CCA systolic: 105.1 centimeters/second CCA diastolic: 34.8 centimeters/second ICA systolic: 81.4 centimeters/second ICA diastolic: 32.9 centimeters/second ICA CCA ratio: 0.77 Vertebral artery: Right: Antegrade flow left: Antegrade flow There is mild patchy echogenic material seen along the carotid arterial mackey some of which casts and acoustic shadow IMPRESSION: According to the SRU criteria there is less than 50% stenosis of the internal carotid artery bilaterally. This is secondary to a moderate amount of calcified and noncalcified are atheromatous plaque formation. <Electronically signed by Uriel Parsons > 06/15/21 [id number]
== END ==
LOC: M RAD 12:54
PROVIDERS: ATTEND Registered Nurse
DX: I65.23 Occlusion and stenosis of bilateral carotid arteries (principal)

== ENCOUNTER → 2021-06-27 | Outpatient (CLI) | payer MEDICARE, OTHER ==
--- NOTE | 2021-06-27 10:58 | REP ---
INDICATION: SLEEP APNEA. COMPARISON: No 01/06/2019 ne. TECHNIQUE: Two views of the chest were obtained. FINDINGS: No definite acute parenchymal opacification or effusion is noted. Slight haziness at the left base is thought to be due to overlying breast tissue. The heart and great vessels appear normal. Mild degenerative changes are seen in the thoracic spine. IMPRESSION: No acute or interval change is identified. <Electronically signed by Saqib Griffin > 06/27/21 [id number]
== END ==
LOC: M WUC 10:24
PROVIDERS: ATTEND Internal Medicine Pulmonary Disease
DX: G47.33 Obstructive sleep apnea (adult) (pediatric) (principal)

== ENCOUNTER → 2021-07-27 | Outpatient (CLI) | payer MEDICARE, OTHER ==
[2021-07-27 16:17] LABS: BASO # 0.1 10^3/uL (0.0-0.2); BASO % 0.5 % (0.0-1.0); EOS # 0.3 10^3/uL (0.0-0.5); HEMATOCRIT 38.8 % (36.0-47.0); HEMOGLOBIN 12.5 g/dl (12.0-15.5); LYMPH # 1.5 10^3/uL (1.5-5.0); LYMPH % 15.5 % (24.0-44.0); MEAN CORPUSCULAR HEMOGLOBIN 29.6 pg (27.0-33.0); MEAN CORPUSCULAR HGB CONC 32.2 g/dl (32.0-36.5); MEAN CORPUSCULAR VOLUME 91.9 fl (80.0-96.0); MONO # 0.4 10^3/uL (0.0-0.8); MONO % 4.6 % (2.0-8.0); NEUTROPHILS # 7.1 10^3/uL (1.5-8.5); NEUTROPHILS % 76.1 % (36.0-66.0); PLATELET COUNT, AUTOMATED 338 10^3/uL (150-450); RED BLOOD COUNT 4.22 10^6/uL (4.00-5.40); WHITE BLOOD COUNT 9.4 10^3/uL (4.0-10.0)
[2021-07-27 16:43] LABS: IMMUNOGLOBULIN M 82.7 MG/DL (40-230)
== END ==
LOC: M WUC 13:39
PROVIDERS: ATTEND Physician Assistant
DX: J32.9 Chronic sinusitis, unspecified (principal)

== ENCOUNTER → 2021-08-29 | Outpatient (REF) | payer MEDICARE, OTHER | LOC: M LAB REF 12:32 | PROVIDERS: ATTEND Physician Assistant Medical | DX: N39.0 Urinary tract infection, site not specified (principal) ==

== ENCOUNTER → 2022-01-10 | Outpatient (CLI) | payer MEDICARE, OTHER ==
[2022-01-10 13:13] LABS: CHOLESTEROL RISK RATIO 3.075 (<5)
== END ==
LOC: M WUC 11:01
PROVIDERS: ATTEND Internal Medicine Cardiovascular Disease
DX: E78.00 Pure hypercholesterolemia, unspecified (principal)

== ENCOUNTER → 2022-06-21 | Outpatient (REF) | payer MEDICARE, OTHER | LOC: M LAB REF 17:20 | PROVIDERS: ATTEND Internal Medicine Nephrology | DX: E83.52 Hypercalcemia (principal) ==

== ENCOUNTER → 2022-07-02 | Outpatient (CLI) | payer MEDICARE, OTHER | LOC: M PLAIMG 15:16 | PROVIDERS: ATTEND Internal Medicine Pulmonary Disease | DX: J45.50 Severe persistent asthma, uncomplicated (principal) ==

== ENCOUNTER → 2022-07-25 | Outpatient (REF) | payer MEDICARE, OTHER ==
[2022-07-25 18:15] LABS: URIC ACID 5.4 MG/DL (3.1-7.8)
[2022-07-25 18:20] LABS: RHEUMATOID FACTOR QUANT < 3.5 IU/ML (<14)
[2022-07-25 18:49] LABS: IRON (FE) 63 UG/DL (50-170)
[2022-07-25 18:51] LABS: FERRITIN 61.1 NG/ML (7.3-270.7)
== END ==
LOC: M LAB REF 16:20
PROVIDERS: ATTEND Registered Nurse
DX: M13.80 Other specified arthritis, unspecified site (principal); H04.129 Dry eye syndrome of unspecified lacrimal gland; D64.9 Anemia, unspecified

== ENCOUNTER → 2022-07-31 | Outpatient (CLI) | payer MEDICARE, OTHER | LOC: M WHC 08:00 | PROVIDERS: ATTEND Internal Medicine | DX: Z12.31 Encounter for screening mammogram for malignant neoplasm of breast (principal) ==

== ENCOUNTER → 2022-08-21 | Outpatient (CLI) | payer MEDICARE, OTHER | LOC: M WUC 10:46 | PROVIDERS: ATTEND Registered Nurse | DX: R93.6 Abnormal findings on diagnostic imaging of limbs (principal); M19.041 Primary osteoarthritis, right hand ==

== ENCOUNTER → 2022-09-03 | Outpatient (CLI) | payer MEDICARE, OTHER ==
[2022-09-03 18:00] LABS: FOLATE 14.8 NG/ML (>5.4)
== END ==
LOC: M RAD 16:18
PROVIDERS: ATTEND Physician Assistant Medical
DX: M79.89 Other specified soft tissue disorders (principal); D64.9 Anemia, unspecified

== ENCOUNTER → 2022-11-08 | Outpatient (REF) | payer MEDICARE, OTHER ==
[~2022-11-08] MED LIST changes: +MONT-5 PO; -SING10TA32 PO
== END ==
LOC: M SFHCWAGY 18:05
PROVIDERS: ATTEND Nurse Practitioner Family
DX: Z12.4 Encounter for screening for malignant neoplasm of cervix (principal); N95.8 Other specified menopausal and perimenopausal disorders

== ENCOUNTER → 2022-11-28 | Outpatient (CLI) | payer MEDICARE, OTHER | LOC: M WHC 12:19 | PROVIDERS: ATTEND Nurse Practitioner Family | DX: N64.4 Mastodynia (principal) | CPT/HCPCS: 77065; G0279 ==

== ENCOUNTER → 2023-01-31 | Outpatient (REF) | payer MEDICARE, OTHER | LOC: M LAB REF 11:18 | PROVIDERS: ATTEND Internal Medicine | DX: E83.52 Hypercalcemia (principal) ==

== ENCOUNTER → 2023-07-02 | Outpatient (CLI) | payer MEDICARE, OTHER ==
[~2023-07-02] MED LIST changes: +MECL-209 PO; -MECL1TAB31 PO
== END ==
LOC: M WUC 13:20
PROVIDERS: ATTEND Internal Medicine Pulmonary Disease
DX: J45.50 Severe persistent asthma, uncomplicated (principal)

== ENCOUNTER → 2023-08-01 | Outpatient (CLI) | payer MEDICARE, OTHER | LOC: M WHC 09:47 | PROVIDERS: ATTEND Nurse Practitioner Family | DX: Z12.31 Encounter for screening mammogram for malignant neoplasm of breast (principal); Z13.820 Encounter for screening for osteoporosis; Z79.51 Long term (current) use of inhaled steroids ==

== ENCOUNTER → 2023-09-24 | Outpatient (REF) | payer MEDICARE, OTHER ==
[2023-09-24 19:43] LABS: HEMATOCRIT 38.5 % (36.0-47.0); HEMOGLOBIN 12.3 g/dl (12.0-15.5); MEAN CORPUSCULAR HEMOGLOBIN 29.9 pg (27.0-33.0); MEAN CORPUSCULAR HGB CONC 31.9 g/dl (32.0-36.5); MEAN CORPUSCULAR VOLUME 93.7 fl (80.0-96.0); PLATELET COUNT, AUTOMATED 325 10^3/uL (150-450); RED BLOOD COUNT 4.11 10^6/uL (4.00-5.40)
[2023-09-24 19:55] LABS: HEMOGLOBIN A1c 5.5 % (4.0-6.0)
[2023-09-24 20:18] LABS: ALBUMIN 3.7 G/DL (3.2-5.2); ALKALINE PHOSPHATASE 74 U/L (46-116); ALT/SGPT 26 U/L (7.0-40); AST/SGOT 18 U/L (<34); BILIRUBIN,TOTAL 0.6 MG/DL (0.3-1.2); BLOOD UREA NITROGEN 19 MG/DL (9-23); CALCIUM LEVEL 9.7 MG/DL (8.3-10.6); CARBON DIOXIDE LEVEL 23 MMOL/L (20-31); CHLORIDE LEVEL 108 MMOL/L (98-107); GLOMERULAR FILTRATION RATE > 60.0 (>45); GLUCOSE, FASTING 105 MG/DL (74-106); POTASSIUM SERUM 4.1 MMOL/L (3.5-5.1); SODIUM LEVEL 142 MMOL/L (136-145); TOTAL PROTEIN 6.9 G/DL (5.7-8.2)
== END ==
LOC: M LABWUC 17:40
PROVIDERS: ATTEND Registered Nurse
DX: E83.52 Hypercalcemia (principal); Z79.899 Other long term (current) drug therapy; R73.01 Impaired fasting glucose

== ENCOUNTER → 2023-10-24 | Outpatient (CLI) | payer MEDICARE, OTHER ==
[2023-10-24 16:55] LABS: FOLATE > 24.0 NG/ML (>5.4); THYROID STIMULATING HORMONE 1.906 uIU/ML (0.55-4.78)
[2023-10-24 16:56] LABS: VITAMIN B12 LEVEL 993 PG/ML (211-911)
[2023-10-24 17:04] LABS: HEMOGLOBIN A1c 5.4 % (4.0-6.0)
== END ==
LOC: M WUC 13:19
PROVIDERS: ATTEND Psychiatry & Neurology Neurology
DX: E53.8 Deficiency of other specified B group vitamins (principal); E55.9 Vitamin D deficiency, unspecified; G62.9 Polyneuropathy, unspecified; E11.9 Type 2 diabetes mellitus without complications; E03.9 Hypothyroidism, unspecified

== ENCOUNTER → 2024-01-16 | Outpatient (CLI) | payer MEDICARE, OTHER | LOC: M RAD 07:57 | PROVIDERS: ATTEND Nurse Practitioner Adult Health | DX: K76.0 Fatty (change of) liver, not elsewhere classified (principal); K59.00 Constipation, unspecified; K21.9 Gastro-esophageal reflux disease without esophagitis ==

== ENCOUNTER → 2024-05-02 | Outpatient (REF) | payer MEDICARE, OTHER | LOC: M LAB REF 10:35 | PROVIDERS: ATTEND Physician Assistant | DX: N30.01 Acute cystitis with hematuria (principal) ==

== ENCOUNTER → 2024-07-27 | Outpatient (CLI) | payer MEDICARE, OTHER ==
[~2024-07-27] MED LIST changes: +LEVA15HF2 INH; -LEVAINH INH
[2024-07-27 16:41] LABS: HEMATOCRIT 37.5 % (36.0-47.0); MEAN CORPUSCULAR HEMOGLOBIN 30.4 pg (27.0-33.0); MEAN CORPUSCULAR VOLUME 94.9 fl (80.0-96.0); PLATELET COUNT, AUTOMATED 333 10^3/uL (150-450); RED BLOOD COUNT 3.95 10^6/uL (4.00-5.40); WHITE BLOOD COUNT 6.9 10^3/uL (4.0-10.0)
[2024-07-27 17:00] LABS: HEMOGLOBIN A1c 4.9 % (4.0-6.0)
[2024-07-27 17:06] LABS: ALBUMIN 3.8 G/DL (3.2-5.2); ALKALINE PHOSPHATASE 66 U/L (35-104); ALT/SGPT 21 U/L (7.0-40); AST/SGOT 13 U/L (<34); BILIRUBIN,TOTAL 0.6 MG/DL (0.3-1.2); BLOOD UREA NITROGEN 15 MG/DL (9-23); CALCIUM LEVEL 10.6 MG/DL (8.3-10.6); CARBON DIOXIDE LEVEL 27 MMOL/L (20-31); CHLORIDE LEVEL 112 MMOL/L (98-107); CHOLESTEROL LEVEL 162 MG/DL (<200); CHOLESTEROL RISK RATIO 2.93 (<5); CREATININE FOR GFR 0.85 MG/DL (0.55-1.30); GLOMERULAR FILTRATION RATE > 60.0 (>45); GLUCOSE, FASTING 85 MG/DL (74-106); HDL CHOLESTEROL 55.2 MG/DL (>40); IRON (FE) 48 UG/DL (50-170); LDL CHOLESTEROL 80.4 MG/DL (<100); MAGNESIUM LEVEL 1.7 MG/DL (1.8-2.4); NON-HDL-C 106.8 MG/DL; POTASSIUM SERUM 3.6 MMOL/L (3.5-5.1); SODIUM LEVEL 145 MMOL/L (136-145); TOTAL PROTEIN 6.6 G/DL (5.7-8.2); TRIGLYCERIDES LEVEL 132 MG/DL (<150)
[2024-07-27 17:08] LABS: FERRITIN 33.3 NG/ML (7.3-270.7); THYROID STIMULATING HORMONE 2.296 uIU/ML (0.55-4.78)
== END ==
LOC: M WUC 11:03
PROVIDERS: ATTEND Registered Nurse
DX: I10 Essential (primary) hypertension (principal); E78.00 Pure hypercholesterolemia, unspecified; D64.9 Anemia, unspecified; Z79.899 Other long term (current) drug therapy

== ENCOUNTER → 2024-08-14 | Outpatient (CLI) | payer MEDICARE, OTHER | LOC: M WHC 10:09 | PROVIDERS: ATTEND Registered Nurse | DX: Z12.31 Encounter for screening mammogram for malignant neoplasm of breast (principal) ==

== ENCOUNTER → 2024-09-23 | Outpatient (REF) | payer MEDICARE, OTHER | LOC: M LAB REF 12:09 | PROVIDERS: ATTEND Internal Medicine Cardiovascular Disease | DX: K50.90 Crohn's disease, unspecified, without complications (principal) ==

== ENCOUNTER → 2024-11-09 | Outpatient (CLI) | payer MEDICARE, OTHER ==
[~2024-11-09] MED LIST changes: +E-Z-PAQUE 96% w/w SUSP 176GM BTL As Ordered ONE
== END ==
LOC: M RAD 10:24
PROVIDERS: ATTEND Nurse Practitioner Adult Health
DX: K59.00 Constipation, unspecified (principal); R19.5 Other fecal abnormalities; R10.32 Left lower quadrant pain; K76.0 Fatty (change of) liver, not elsewhere classified; M25.50 Pain in unspecified joint; Z83.79 Family history of other diseases of the digestive system

== ENCOUNTER → 2024-11-18 | Outpatient (CLI) | payer MEDICARE, OTHER ==
[~2024-11-18] MED LIST changes: -E-Z-PAQUE 96% w/w SUSP 176GM BTL As Ordered ONE
[2024-11-18 19:04] LABS: HEMATOCRIT 36.6 % (36.0-47.0); HEMOGLOBIN 11.7 g/dl (12.0-15.5); MEAN CORPUSCULAR HEMOGLOBIN 30.3 pg (27.0-33.0); MEAN CORPUSCULAR VOLUME 94.8 fl (80.0-96.0); PLATELET COUNT, AUTOMATED 338 10^3/uL (150-450); RED BLOOD COUNT 3.86 10^6/uL (4.00-5.40); WHITE BLOOD COUNT 6.8 10^3/uL (4.0-10.0)
[2024-11-18 19:21] LABS: VITAMIN B12 LEVEL 671 PG/ML (211-911)
[2024-11-18 19:23] LABS: FOLATE > 24.00 NG/ML (>5.4)
== END ==
LOC: M WUC 14:48
PROVIDERS: ATTEND Registered Nurse
DX: I10 Essential (primary) hypertension (principal); R79.89 Other specified abnormal findings of blood chemistry

== ENCOUNTER → 2024-12-07 | Outpatient (CLI) | payer MEDICARE, OTHER ==
[2024-12-07 18:42] LABS: HEMOGLOBIN A1c 4.6 % (4.0-6.0)
[2024-12-07 18:58] LABS: BILIRUBIN,TOTAL 0.9 MG/DL (0.3-1.2); CREATININE FOR GFR 0.82 MG/DL (0.55-1.30); GLOMERULAR FILTRATION RATE 76.9 (>39); POTASSIUM SERUM 4.3 MMOL/L (3.5-5.1); TOTAL PROTEIN 6.8 G/DL (5.7-8.2)
== END ==
LOC: M WUC 14:36
PROVIDERS: ATTEND Internal Medicine Gastroenterology
DX: K76.0 Fatty (change of) liver, not elsewhere classified (principal)

== ENCOUNTER → 2024-12-09 | Outpatient (REF) | payer MEDICARE, OTHER | LOC: M LAB REF 10:38 | PROVIDERS: ATTEND Internal Medicine Gastroenterology | DX: R19.5 Other fecal abnormalities (principal); K76.0 Fatty (change of) liver, not elsewhere classified ==

== ENCOUNTER → 2025-03-14 | Outpatient (REF) | payer MEDICARE, OTHER | LOC: M LAB REF 16:29 | PROVIDERS: ATTEND Internal Medicine Gastroenterology | DX: R19.7 Diarrhea, unspecified (principal); R10.9 Unspecified abdominal pain; K59.00 Constipation, unspecified; Z80.0 Family history of malignant neoplasm of digestive organs; R19.5 Other fecal abnormalities ==

== ENCOUNTER 2025-06-30 10:36 | Day surgery (SDC) | payer MEDICARE, OTHER ==
[~2025-06-30] VITALS: Ht 154.9 cm; Wt 61.7 kg
[~2025-06-30 10:36] MED LIST changes: +ADAL40AU16 INJ; +LIDOCAINE 3.5% 1 ML OPHTH TOPICAL GEL OU ONE; +LINZ145C PO; +MIDAZOLAM INJ 2 MG/2 ML VIAL As Ordered ONE; +RIZA10TA58 PO; +TIRZ5PEN3 INJ
[2025-06-30] MEDS: LIDOCAINE 2% W/EPINEPHrine 20 ML VIAL **PRES FREE As Ordered ONE (14:56)
[2025-06-30] MEDS: LIDOCAINE 1% SDV 5 ML VIAL As Ordered ONE (14:57)
[2025-06-30] MEDS: TOBRADEX OPHTH OINT 3.5 GM As Ordered ONE (15:02)
[2025-06-30] MEDS: BSS IRRIG/VANCO(10MG)/TOBRA(5MG)/EPINEPH(1:1000-0.5CC)500ML BAG-ORONLY As Ordered ONE (15:03)
[2025-06-30 15:15] VITALS: BP 112/54; TEMP 97; O2SAT 97
== END 2025-06-30 15:30 | disposition home or self-care (01) ==
LOC: M SDC 10:36
PROVIDERS: ATTEND Ophthalmology
DX: H11.222 Conjunctival granuloma, left eye (principal); I12.9 Hypertensive chronic kidney disease with stage 1 through stage 4 chronic kidney disease, or unspecified chronic kidney disease; N18.9 Chronic kidney disease, unspecified; J45.909 Unspecified asthma, uncomplicated; I47.10 Supraventricular tachycardia, unspecified; E66.9 Obesity, unspecified; G47.33 Obstructive sleep apnea (adult) (pediatric); E78.00 Pure hypercholesterolemia, unspecified; Z79.899 Other long term (current) drug therapy; Z79.82 Long term (current) use of aspirin; K51.90 Ulcerative colitis, unspecified, without complications; M45.9 Ankylosing spondylitis of unspecified sites in spine; Z88.0 Allergy status to penicillin; Z88.1 Allergy status to other antibiotic agents; Z88.8 Allergy status to other drugs, medicaments and biological substances
CPT/HCPCS: 68110; 88305; J2250; J3010

== ENCOUNTER → 2025-08-02 | Outpatient (CLI) | payer MEDICARE, OTHER ==
[~2025-08-02] MED LIST changes: -LIDOCAINE 3.5% 1 ML OPHTH TOPICAL GEL OU ONE; -MIDAZOLAM INJ 2 MG/2 ML VIAL As Ordered ONE
[2025-08-02 17:38] LABS: BASO # 0.0 10^3/uL (0.0-0.2); BASO % 0.5 % (0.0-1.0); EOS # 0.1 10^3/uL (0.0-0.5); EOS % 1.4 % (0.0-3.0); LYMPH # 1.8 10^3/uL (1.5-5.0); LYMPH % 20.6 % (24.0-44.0); MONO # 0.6 10^3/uL (0.0-0.8); MONO % 7.2 % (2.0-8.0); NEUTROPHILS # 6.1 10^3/uL (1.5-8.5); NEUTROPHILS % 70.2 % (36.0-66.0); PLATELET COUNT, AUTOMATED 306 10^3/uL (150-450)
[2025-08-02 17:40] LABS: ALT/SGPT 33 U/L (7.0-40); AST/SGOT 28 U/L (<34); C REACTIVE PROTEIN QUANTITATIV < 0.50 MG/DL (<1.0); CALCIUM LEVEL 10.1 MG/DL (8.3-10.6); CARBON DIOXIDE LEVEL 27 MMOL/L (20-31); CHLORIDE LEVEL 105 MMOL/L (98-107); CHOLESTEROL LEVEL 150 MG/DL (<200); CHOLESTEROL RISK RATIO 2.30 (<5); CREATININE FOR GFR 0.87 MG/DL (0.55-1.30); GLOMERULAR FILTRATION RATE 71.6 (>39); LDL CHOLESTEROL 67.8 MG/DL (<100); NON-HDL-C 84.8 MG/DL; POTASSIUM SERUM 4.3 MMOL/L (3.5-5.1); SODIUM LEVEL 140 MMOL/L (136-145); TRIGLYCERIDES LEVEL 85 MG/DL (<150)
[2025-08-02 18:28] LABS: ESTIMATED AVERAGE GLUCOSE 91.0 MG/DL (60-110)
== END ==
LOC: M WUC 15:22
PROVIDERS: ATTEND Registered Nurse
DX: M25.521 Pain in right elbow (principal); E78.00 Pure hypercholesterolemia, unspecified; R73.01 Impaired fasting glucose